=== PATIENT | female | born 1965 | race Caucasian/White ===

== ENCOUNTER 2016-12-03 13:37 | Emergency (ER) | payer OTHER ==
[~2016-12-03] VITALS: Ht 154.9 cm; Wt 79.8 kg
[~2016-12-03 13:37] MED LIST: CALC500T27 PO; CYCL10TA2 PO; CYCL5TAB PO; DOCU50CA9 PO; HYDR-971 PO; INSU100C4 SQ; INSU100I13 SQ; LISI2.5T PO; LORA10TA3 PO; LORA5SOL7 PO; METF500T4 PO; NAPR375T3 PO; NAPR550T PO; SIMV10TA3 PO
[2016-12-03 14:10] VITALS: BP 140/100
[2016-12-03] MEDS ORDERED: SULF1TAB24 PO (15:45)
--- NOTE | 2016-12-03 15:45 | PHYS DOC ---
Past Medical History Past Medical History: Diabetes-Type I, Diabetes-Type II, High Cholesterol, Hypertension, Other Additional Past Medical Histor: NEUROPATHY Past Surgical History: , Other Additional Past Surgical Histo: Carpal Tunnel repair Alcohol Use: None Drug Use: None Adult General Chief Complaint Chief Complaint: HAND PROBLEM HPI HPI Patient is a 51 year old female with history of diabetes and hypertension who presents today complaining of a blister on the left hand with redness streaking to the left forearm that began a couple days ago. Patient states for the last 1 year she's been getting similar blisters almost every other month. She states sometimes they give her antibiotics and sometimes they open them up and drain them. She states she has an appointment with a skin doctor at [facility] on 09 December 2016. Patient denies any fever or drainage from the area. Review of Systems Review of Systems Constitutional: Denies fever or chills [] Eyes: Denies change in visual acuity, redness, or eye pain [] Musculoskeletal: Denies back pain or joint pain [] Integument: Blisters to the left hand with streaking Neurologic: Denies headache, focal weakness or sensory changes [] Endocrine: Denies polyuria or polydipsia [] Allergies Allergies Allergies Coded Allergies Type Severity Reaction Last Updated Verified Penicillins Adverse Reaction Intermediate vomiting 09/10/16 No Physical Exam Physical Exam Constitutional: Well developed, well nourished, no acute distress, non-toxic appearance. [] HENT: Normocephalic, atraumatic, bilateral external ears normal, oropharynx moist, no oral exudates, nose normal. [] Skin: left palm of hand below the MIP joint with a very firm erythematous blister with warm and TTP. There is one streak of redness on the left dorsal hand from first metacarpal to mid forearm. Back: No tenderness, no CVA tenderness. [] Extremities: No tenderness, no cyanosis, no clubbing, ROM intact, no edema. [] Neurologic: Alert and oriented X 3, normal motor function, normal sensory function, no focal deficits noted. [] Psychologic: Affect normal, judgement normal, mood normal. [] Current Patient Data Vital Signs Vital Signs Date Time Temp Pulse Resp B/P Pulse Ox O2 Delivery O2 Flow Rate FiO2 12/03/16 14:10 98.2 91 20 140/100 96 Room Air 98.2 EKG EKG [] Radiology/Procedures Radiology/Procedures [] Course & Med Decision Making Course & Med Decision Making Pertinent Labs and Imaging studies reviewed. (See chart for details) Patient is in the ED with cellulitis to the left hand. Discharged with Bactrim. Provided return precautions and discharged in stable condition. Dragon Disclaimer Dragon Disclaimer This electronic medical record was generated, in whole or in part, using a voice recognition dictation system. Departure Departure Impression: Primary Impression: Cellulitis of hand Disposition: HOME, SELF-CARE Condition: STABLE Referrals: ANDRES BALDWIN MD (PCP) Please follow-up with the skin doctor at as well as a primary care doctor next week Patient Instructions: Cellulitis Additional Instructions: You were seen for cellulitis of the left hand. Keep the area clean and dry. Ensure you complete your antibiotics. Follow-up with the on primary care doctor as well as a inspector tubes next week. Come back to the ED at any point symptoms worsen or develop a fever. Scripts Sulfamethoxazole/Trimethoprim (Bactrim Ds Tablet)1 Each Tablet1 Tab PO BID #20 TAB Prov:DIANE REDMAN APRN 12/03/16 DIANE REDMAN APRN Dec 03, 2016 15:45
[2016-12-04] MEDS ORDERED: HYDR-971 PO (18:46)
== END 2016-12-03 15:57 | disposition home or self-care (01) ==
LOC: ER 13:37
DX: L03.114 Cellulitis of left upper limb (principal); E78.00 Pure hypercholesterolemia, unspecified; I10 Essential (primary) hypertension; E11.40 Type 2 diabetes mellitus with diabetic neuropathy, unspecified; Z88.0 Allergy status to penicillin
CPT/HCPCS: 99283

== ENCOUNTER 2016-12-04 16:44 | Emergency (ER) | payer OTHER ==
[~2016-12-04 16:44] MED LIST changes: +SULF1TAB24 PO
[2016-12-04 17:13] VITALS: BP 122/76
--- NOTE | 2016-12-04 18:12 | PHYS DOC ---
Past Medical History Past Medical History: Diabetes-Type I, Diabetes-Type II, High Cholesterol, Hypertension, Other Additional Past Medical Histor: NEUROPATHY Past Surgical History: , Other Additional Past Surgical Histo: Carpal Tunnel repair Alcohol Use: None Drug Use: None Adult General Chief Complaint Chief Complaint: ABSCESS HPI HPI Patient is a 51 year old female who presents emergency room today with complaint of worsening of redness and swelling to her LEFT hand. Patient does have a history of recurring infection to this hand. She's had it opened and drained in the past. She has not followed up with either store warehouse associate or infectious disease doctor. Patient was seen here yesterday. She was placed on Bactrim. Patient is been on Bactrim for 24 hours and states that it has gotten worse. Patient does deny fevers or chills. She denies myalgias or arthralgias. Patient states that she is pending an appointment to see a store warehouse associate this month. Patient denies having any type of subcutaneous foreign body/skin injury prior to having problems with this. She has been seen at [facility] in the past for this. She states that she had it incised and drained at that time and placed on antibiotics. Review of Systems Review of Systems Constitutional: Denies fever or chills [] Eyes: Denies change in visual acuity, redness, or eye pain [] HENT: Denies nasal congestion or sore throat [] Respiratory: Denies cough or shortness of breath [] Cardiovascular: No additional information not addressed in HPI [] GI: Denies abdominal pain, nausea, vomiting, bloody stools or diarrhea [] : Denies dysuria or hematuria [] Musculoskeletal: Denies back pain or joint pain [] Integument: Denies rash or skin lesions [] Neurologic: Denies headache, focal weakness or sensory changes [] Endocrine: Denies polyuria or polydipsia [] Current Medications Current Medications Current Medications Medications (Trade) Dose Ordered Sig/Larissa Start Time Stop Time Status Last Admin Dose Admin Lidocaine/Sodium Bicarbonate (Buffered Lidocaine 1%) 20 ml 1X ONCE 12/04/16 18:15 12/04/16 18:16 DC Allergies Allergies Allergies Coded Allergies Type Severity Reaction Last Updated Verified Penicillins Adverse Reaction Intermediate vomiting 09/10/16 No Physical Exam Physical Exam Constitutional: Well developed, well nourished, no acute distress, non-toxic appearance. [] HENT: Normocephalic, atraumatic, bilateral external ears normal, oropharynx moist, no oral exudates, nose normal. [] Eyes: PERRLA, EOMI, conjunctiva normal, no discharge. [] Neck: Normal range of motion, no tenderness, supple, no stridor. [] Cardiovascular:Heart rate regular rhythm, no murmur [] Lungs & Thorax: Bilateral breath sounds clear to auscultation [] Abdomen: Bowel sounds normal, soft, no tenderness, no masses, no pulsatile masses. [] Skin: LEFT hand with a fluctuant pocket on the palmar surface just proximal to the base of the phalanx of the index finger. There are no adjacent sinus tracts or additional areas of swelling, induration or fluctuant pocket. There is no fusiform swelling to the index finger. There is no ascending lymphangitis. Back: No tenderness, no CVA tenderness. [] Extremities: No tenderness, no cyanosis, no clubbing, ROM intact, no edema. [] Neurologic: Alert and oriented X 3, normal motor function, normal sensory function, no focal deficits noted. [] Psychologic: Affect normal, judgement normal, mood normal. [] Current Patient Data Vital Signs Vital Signs Date Time Temp Pulse Resp B/P Pulse Ox O2 Delivery O2 Flow Rate FiO2 12/04/16 17:13 98.0 86 22 98 Room Air 98.0 EKG EKG [] Radiology/Procedures Radiology/Procedures Procedure note: 1 cm pustule to the palmar surface of patient's right hand was anesthetized with buffered 1% lidocaine. Wound was prepped with Betadine solution. 11 blade scalpel was used to incise the superficial laceration with expression of a small amount of purulent material. Wound was dressed with gauze and bandaged with Coban. Patient tolerated the procedure well Course & Med Decision Making Course & Med Decision Making Pertinent Labs and Imaging studies reviewed. (See chart for details) [] Dragon Disclaimer Dragon Disclaimer This electronic medical record was generated, in whole or in part, using a voice recognition dictation system. Departure Departure Impression: Primary Impression: Abscess Disposition: 01 HOME, SELF-CARE Condition: IMPROVED Referrals: ANDRES BALDWIN MD (PCP) Patient Instructions: Abscess, [id number] Additional Instructions: 1. Continue taking all your medications as prescribed. 2. Review the discharge instructions provided for self-care and reasons to return the emergency department. 3. Be sure to follow-up with a store warehouse associate on the as planned. Scripts Hydrocodone/Apap 5-325 ([place] 5-325 Tablet)1 Each Tablet1 Tab PO PRN Q6HRS PRN PAIN #10 TAB Prov:WILI MUÑOZ 12/04/16 WILI MUÑOZ Dec 04, 2016 18:12
[2016-12-04] MEDS ORDERED: LIDOCAINE 1% / SOD BICARB 8.4% 20 ML VIAL. IJ ONE (18:15)
[2016-12-04] MEDS ORDERED: HYDR-971 PO (18:46)
== END 2016-12-04 18:52 | disposition home or self-care (01) ==
LOC: ER 16:44
DX: L02.512 Cutaneous abscess of left hand (principal); E10.40 Type 1 diabetes mellitus with diabetic neuropathy, unspecified; E78.00 Pure hypercholesterolemia, unspecified; I10 Essential (primary) hypertension; Z88.0 Allergy status to penicillin
CPT/HCPCS: 10060; 99283-25

== ENCOUNTER 2017-01-02 16:23 | Emergency (ER) | payer OTHER ==
[~2017-01-02] VITALS: Ht 154.9 cm; Wt 79.4 kg
[2017-01-02 16:57] VITALS: BP 131/74
[2017-01-02] MEDS ORDERED: CLIN300C86 PO (17:17)
[2017-01-02] MEDS ORDERED: HYDR-971 PO (17:17)
--- NOTE | 2017-01-02 17:17 | PHYS DOC ---
Past Medical History Past Medical History: Diabetes-Type I, High Cholesterol, Hypertension Additional Past Medical Histor: NEUROPATHY Past Surgical History: Other Additional Past Surgical Histo: carpal tunnel Alcohol Use: None Additional Information: denies Drug Use: Other Social History Narrative: denies Adult General Chief Complaint Chief Complaint: SKIN PROBLEM HPI HPI Patient is a 51 year old female who presents emergency room with a complaint of pustules to her left hand as well as red streaks extending up her left arm. Patient states this began approximately 3-4 days ago. Patient has a well- established recurring history of this. She has been seen by christian science practitioner at [facility]. She has not been seen by an infectious disease doctor. Patient denies antibiotic use within the past 30 days. She denies fevers, chills, myalgias or arthralgias. Review of Systems Review of Systems Constitutional: Denies fever or chills [] Eyes: Denies change in visual acuity, redness, or eye pain [] HENT: Denies nasal congestion or sore throat [] Respiratory: Denies cough or shortness of breath [] Cardiovascular: No additional information not addressed in HPI [] GI: Denies abdominal pain, nausea, vomiting, bloody stools or diarrhea [] : Denies dysuria or hematuria [] Musculoskeletal: Denies back pain or joint pain [] Integument: Denies rash or skin lesions [] Neurologic: Denies headache, focal weakness or sensory changes [] Endocrine: Denies polyuria or polydipsia [] Allergies Allergies Allergies Coded Allergies Type Severity Reaction Last Updated Verified Penicillins Adverse Reaction Intermediate vomiting 09/10/16 No Physical Exam Physical Exam Constitutional: Well developed, well nourished, no acute distress, non-toxic appearance. Patient is afebrile. HENT: Normocephalic, atraumatic, bilateral external ears normal, oropharynx moist, no oral exudates, nose normal. [] Eyes: PERRLA, EOMI, conjunctiva normal, no discharge. [] Neck: Normal range of motion, no tenderness, supple, no stridor. [] Cardiovascular:Heart rate regular rhythm, no murmur [] Lungs & Thorax: Bilateral breath sounds clear to auscultation [] Abdomen: Bowel sounds normal, soft, no tenderness, no masses, no pulsatile masses. [] Skin: Luz Maria sized cluster of stools to the palm of patient's left hand with surrounding erythema. There is ascending lymphangitis to the AC flexor crease. There is no palpable fluctuant pockets. There is no active purulent drainage. There is no fusiform erythema or swelling to patient's left hand. Back: No tenderness, no CVA tenderness. [] Extremities: No tenderness, no cyanosis, no clubbing, ROM intact, no edema. [] Neurologic: Alert and oriented X 3, normal motor function, normal sensory function, no focal deficits noted. [] Psychologic: Affect normal, judgement normal, mood normal. [] Current Patient Data Vital Signs Vital Signs Date Time Temp Pulse Resp B/P Pulse Ox O2 Delivery O2 Flow Rate FiO2 01/02/17 16:57 98.1 90 14 94 Room Air 98.1 EKG EKG [] Radiology/Procedures Radiology/Procedures [] Course & Med Decision Making Course & Med Decision Making Pertinent Labs and Imaging studies reviewed. (See chart for details) [] Dragon Disclaimer Dragon Disclaimer This electronic medical record was generated, in whole or in part, using a voice recognition dictation system. Departure Departure Impression: Primary Impression: Cellulitis of hand Disposition: HOME, SELF-CARE Condition: GOOD Referrals: ANDRES BALDWIN MD (PCP) CHARLEEN SMART MD Patient Instructions: Cellulitis, [id number] Additional Instructions: 1. Take the medication as prescribed. 2. Review the discharge instructions provided for self-care and reasons to return to the emergency department. 3. Follow-up with Dr. Baldwin this week as planned. Be sure to discuss follow- up with an infectious disease doctor. The phone number for an infectious disease doctor has been placed in your paperwork. Scripts Hydrocodone/Apap 5-325 ([place] 5-325 Tablet)1 Each Tablet1 Tab PO PRN Q6HRS PRN PAIN #10 TAB Ref 0 Prov:WILI MUÑOZ 01/02/17 Clindamycin Hcl 300 Mg Capsule1 Cap PO TID #21 CAP Prov:WILI MUÑOZ 01/02/17 WILI MUÑOZ Jan 02, 2017 17:17
== END 2017-01-02 17:26 | disposition home or self-care (01) ==
LOC: ER 16:23
DX: L03.114 Cellulitis of left upper limb (principal); E10.40 Type 1 diabetes mellitus with diabetic neuropathy, unspecified; E78.00 Pure hypercholesterolemia, unspecified; I10 Essential (primary) hypertension; Z98.890 Other specified postprocedural states; Z88.0 Allergy status to penicillin
CPT/HCPCS: 99283

== ENCOUNTER 2017-02-01 11:06 | Emergency (ER) | payer OTHER ==
[~2017-02-01] VITALS: Ht 154.9 cm; Wt 79.4 kg
[~2017-02-01 11:06] MED LIST changes: +CLIN300C86 PO
[2017-02-01 11:14] VITALS: BP 126/82
--- NOTE | 2017-02-01 12:14 | PHYS DOC ---
Past Medical History Past Medical History: Diabetes-Type I, High Cholesterol, Hypertension Additional Past Medical Histor: NEUROPATHY Past Surgical History: Other Additional Past Surgical Histo: carpal tunnel Alcohol Use: None Drug Use: None Adult General Chief Complaint Chief Complaint: leg pain from fall HPI HPI Patient is a 51 year old female who presents with R lower leg pain from a fall 2 days ago. She "just stumbled" to cause the fall, did not his head or have loc. She has not attempted any symptom controlling medication for her pain. She denies discoloration or paraesthesias She has pain localized over the proximal lateral R calf where she struck her leg. She does not take any blood thinners.. Review of Systems Review of Systems Constitutional: Denies fever or chills [] Eyes: Denies change in visual acuity, redness, or eye pain [] HENT: Denies nasal congestion or sore throat [] Respiratory: Denies cough or shortness of breath [] Cardiovascular: denies chest pain GI: Denies abdominal pain, nausea, vomiting, bloody stools or diarrhea [] : Denies dysuria or hematuria [] Musculoskeletal: Denies back pain Integument: Denies rash or skin lesions [] Neurologic: Denies headache, focal weakness or sensory changes [] Current Medications Current Medications Current Medications Medications (Trade) Dose Ordered Sig/Larissa Start Time Stop Time Status Last Admin Dose Admin Ketorolac Tromethamine (Toradol Im) 60 mg 1X ONCE 02/01/17 12:15 02/01/17 12:16 DC 02/01/17 12:26 60 MG Allergies Allergies Allergies Coded Allergies Type Severity Reaction Last Updated Verified Penicillins Adverse Reaction Intermediate vomiting 09/10/16 No Physical Exam Physical Exam Constitutional: Well developed, well nourished, no acute distress, non-toxic appearance. [] HENT: Normocephalic, atraumatic, bilateral external ears normal, oropharynx moist, no oral exudates, nose normal. [] Eyes: PERRLA, EOMI, conjunctiva normal, no discharge. [] Neck: Normal range of motion, no tenderness, supple, no stridor. [] Cardiovascular:Heart rate regular with regular rhythm Lungs & Thorax: no respiratory distress Extremities: RLE with TTP along proximal lateral lower leg with skin intact, distal pulse intact, normal skin color, wiggles toes, no signs of compartment syndrome. Neurologic: Alert and oriented X 3, normal motor function, normal sensory function, no focal deficits noted. [] Psychologic: Affect normal, judgement normal, mood normal. [] Current Patient Data Vital Signs Vital Signs Date Time Temp Pulse Resp B/P (MAP) Pulse Ox O2 Delivery O2 Flow Rate FiO2 02/01/17 11:14 98.3 96 20 95 Room Air 98.3 EKG EKG [] Radiology/Procedures Radiology/Procedures tib/fib XRay: Examination: 2 views of the right tibia and fibula History: History of fall down stairs, pain for 2 days Comparison: None available Findings: The alignment of the tibia and fibula grossly appears unremarkable. There is no obvious acute fracture identified. Impression: no acute osseous findings Course & Med Decision Making Course & Med Decision Making Pertinent Labs and Imaging studies reviewed. (See chart for details) pt given pain meds. XRay performed, no fx. ANDREW wrap applied, strict instructions on return if any signs of compartment syndrome develop. DC'd with rx for pain meds and contusion care instructions. Dragon Disclaimer Dragon Disclaimer This electronic medical record was generated, in whole or in part, using a voice recognition dictation system. Departure Departure Impression: Primary Impression: Contusion of leg Disposition: HOME, SELF-CARE Condition: STABLE Referrals: ANDRES BALDWIN MD (PCP) Scripts Ibuprofen (IBUPROFEN) 800 Mg Tablet 800 MG PO PRN TID Y for PAIN, #20 TAB take with food or milk to avoid upsetting stomach Prov: NANI VALLADARES MD 02/01/17 NANI VALLADARES MD February 01, 2017 12:14
[2017-02-01] MEDS ORDERED: KETOROLAC TROMETHAMINE 60 MG/2 ML INJ. IM ONE (12:15)
--- NOTE | 2017-02-01 12:35 | RAD ---
Examination: 2 views of the right tibia and fibula History: History of fall down stairs, pain for 2 days Comparison: None available Findings: The alignment of the tibia and fibula grossly appears unremarkable. There is no obvious acute fracture identified. Impression: no acute osseous findings
[2017-02-01] MEDS ORDERED: IBUP-1060 PO (12:40)
== END 2017-02-01 12:50 | disposition home or self-care (01) ==
LOC: ER 11:06
DX: S80.11XA Contusion of right lower leg, initial encounter (principal); E11.40 Type 2 diabetes mellitus with diabetic neuropathy, unspecified; E78.00 Pure hypercholesterolemia, unspecified; I10 Essential (primary) hypertension; Z88.0 Allergy status to penicillin; W01.0XXA Fall on same level from slipping, tripping and stumbling without subsequent striking against object, initial encounter; Y93.89 Activity, other specified; Y92.89 Other specified places as the place of occurrence of the external cause; Y99.8 Other external cause status
CPT/HCPCS: 73590; 96372; 99284; J1885

== ENCOUNTER 2017-04-18 15:15 | Emergency (ER) | payer OTHER ==
[~2017-04-18 15:15] MED LIST changes: -CALC500T27 PO; +CALC500T30 PO; +CLIN300C8 PO; -CLIN300C86 PO; +IBUP-1060 PO
--- NOTE | 2017-04-18 16:36 | PHYS DOC ---
Past Medical History Past Medical History: Diabetes-Type I, High Cholesterol, Hypertension Additional Past Medical Histor: NEUROPATHY Past Surgical History: Other Additional Past Surgical Histo: carpal tunnel Alcohol Use: None Drug Use: None Adult General Chief Complaint Chief Complaint: EARACHE/EAR PAIN [facility] HPI Patient is a 51 year old female with a history of hypertension high cholesterol diabetes type 1 who presents today with multiple complaints. Patient is complaining of left ear pain for a week. She is also complaining of drainage from the left ear, denies swimming. She is also complaining of a rash and skin infection underneath her left breast that she noted a couple days ago. Patient is also complaining of chronic dental pain. She states she has a plan to follow-up with the dentist remove all her remaining teeth approx. 5 left. Patient denies any fever. She is requesting something for pain. Review of Systems Review of Systems Constitutional: Denies fever or chills [] Eyes: Denies change in visual acuity, redness, or eye pain [] HENT: Left ear pain with drainage, dental pain Respiratory: Denies cough or shortness of breath [] Cardiovascular: No additional information not addressed in HPI [] GI: Denies abdominal pain, nausea, vomiting, bloody stools or diarrhea [] : Denies dysuria or hematuria [] Musculoskeletal: Denies back pain or joint pain [] Integument: Skin infection underneath her breast/rash Neurologic: Denies headache, focal weakness or sensory changes [] Endocrine: Denies polyuria or polydipsia [] Current Medications Current Medications Current Medications Medications (Trade) Dose Ordered Sig/Larissa Start Time Stop Time Status Last Admin Dose Admin Tramadol HCl (Ultram) 50 mg 1X ONCE 04/18/17 17:15 04/18/17 17:16 Allergies Allergies Allergies Coded Allergies Type Severity Reaction Last Updated Verified Penicillins Adverse Reaction Intermediate vomiting 09/10/16 No Physical Exam Physical Exam Constitutional: Well developed, well nourished, no acute distress, non-toxic appearance. [] HENT: Normocephalic, atraumatic, bilateral external ears normal, oropharynx moist, no oral exudates, nose normal. [] Left ear canal is narrowed with trace yellow debris and painful tragus, TM is normal. Patient has 5 teeth left that appear infected. Approx. 2 on the left upper gum and three on the left lower gum. Eyes: PERRLA, EOMI, conjunctiva normal, no discharge. [] Neck: Normal range of motion, no tenderness, supple, no stridor. [] Cardiovascular:Heart rate regular rhythm, no murmur [] Lungs & Thorax: Bilateral breath sounds clear to auscultation [] Abdomen: Bowel sounds normal, soft, no tenderness, no masses, no pulsatile masses. [] Skin: Patient has mild cellulitis underneath her left breast. There is no nipple involvement. Back: No tenderness, no CVA tenderness. [] Extremities: No tenderness, no cyanosis, no clubbing, ROM intact, no edema. [] Neurologic: Alert and oriented X 3, normal motor function, normal sensory function, no focal deficits noted. [] Psychologic: Affect normal, judgement normal, mood normal. [] EKG EKG [] Radiology/Procedures Radiology/Procedures [] Course & Med Decision Making Course & Med Decision Making Pertinent Labs and Imaging studies reviewed. (See chart for details) Patient is in the ED with left otitis externa, infected dental caries and cellulitis underneath her left breast. She was discharged with Oflaxacin, clindamycin and ultram. F/u with her PCP in one week and dentist as soon s she can. Dragon Disclaimer Dragon Disclaimer This electronic medical record was generated, in whole or in part, using a voice recognition dictation system. Departure Departure Impression: Primary Impression: Cellulitis of left breast Additional Impressions: Infected dental caries Otitis externa of left ear Disposition: 01 HOME, SELF-CARE Condition: STABLE Referrals: ANDRES BALDWIN MD (PCP) follow up with your doctor in one week or sooner Patient Instructions: Cellulitis, [id number], Dental Caries, Otitis Externa Additional Instructions: You were seen for skin infection underneath the left breast, infected dental caries, and left ear infection. Use the medication prescribed as ordered. Follow-up with the primary care doctor as soon as possible as well as a dentist. Do not immerse your left ear in water. Scripts Ofloxacin (OFLOXACIN) 5 Ml Drops 5 DROP EACH EAR BID, #10 ML Prov: EMMANUELUNGADIANE INTERNAL AUDIT CONSULTANT 04/18/17 Clindamycin Hcl (CLINDAMYCIN HCL) 150 Mg Capsule 3 CAP PO TID, #90 CAP Prov: MUTUNGA,DIANE INTERNAL AUDIT CONSULTANT 04/18/17 Tramadol Hcl (ULTRAM) 50 Mg Tablet 1 TAB PO Q6HRS, #30 TAB Prov: DIANE REDMAN INTERNAL AUDIT CONSULTANT 04/18/17 Problem Qualifiers Additional Impressions: Otitis externa of left ear Otitis externa type: unspecified type Chronicity: acute Qualified Codes: H60.502 - Unspecified acute noninfective otitis externa, left ear EMMANUELDIANE ROMAN INTERNAL AUDIT CONSULTANT Apr 18, 2017 16:36
[2017-04-18 16:40] VITALS: BP 112/70
[2017-04-18] MEDS ORDERED: OFLO5DRO7 EACH EAR (16:52)
[2017-04-18] MEDS ORDERED: TRAM-48 PO (16:52)
[2017-04-18] MEDS ORDERED: CLIN150C14 PO (16:52)
[2017-04-18] MEDS ORDERED: traMADol 50 MG TABLET PO ONE (17:15)
[2017-04-18] MEDS ORDERED: DIPHTH,PERTUSS(ACELL),TET TOX 0.5 ML DISP.SYRIN. VAX IM ONE (17:15)
== END 2017-04-18 17:05 | disposition home or self-care (01) ==
LOC: ER 15:15
DX: H60.92 Unspecified otitis externa, left ear (principal); N61.0 Mastitis without abscess; K02.9 Dental caries, unspecified; K04.7 Periapical abscess without sinus; E78.00 Pure hypercholesterolemia, unspecified; I10 Essential (primary) hypertension; E11.40 Type 2 diabetes mellitus with diabetic neuropathy, unspecified
CPT/HCPCS: 99283

== ENCOUNTER 2017-05-11 13:08 | Emergency (ER) | payer OTHER ==
[~2017-05-11 13:08] MED LIST changes: +CLIN150C14 PO; +OFLO5DRO7 EACH EAR; +TRAM-48 PO
--- NOTE | 2017-05-11 13:40 | PHYS DOC ---
Past Medical History Past Medical History: Diabetes-Type I, High Cholesterol, Hypertension Additional Past Medical Histor: NEUROPATHY Past Surgical History: Other Additional Past Surgical Histo: carpal tunnel Alcohol Use: None Drug Use: None Adult General Chief Complaint Chief Complaint: DIZZY/LIGHT HEADED HPI HPI Patient is a 51 year old female who presents with multiple complaints. They state they're currently homeless and living in an abandoned building. She complains of left ear ringing and a beeping noise his been going on for the last several weeks to a month. She has eardrops that she's been using because she states that in the past she had a perforated eardrum. She also complains of some burning on urination. She also complains about second toe on her left foot hurting. She states she might of injured it or had something dropped on it. She states been hurting for about a week. She also complains about a rash under her left breast. She states she was on antibiotics for but stopped because it made her stomach hurt. His any fevers, nausea vomiting, abdominal pain, diarrhea or constipation. Review of Systems Review of Systems Constitutional: Denies fever or chills [] Eyes: Denies change in visual acuity, redness, or eye pain [] HENT: Denies nasal congestion or sore throat [] Respiratory: Denies cough or shortness of breath [] Cardiovascular: No additional information not addressed in HPI [] GI: Denies abdominal pain, nausea, vomiting, bloody stools or diarrhea [] : Denies dysuria or hematuria [] Musculoskeletal: Denies back pain, positive for left toe pain Integument:, Positive for skin rash Neurologic: Denies headache, focal weakness or sensory changes [] Endocrine: Denies polyuria or polydipsia [] Current Medications Current Medications Current Medications Medications (Trade) Dose Ordered Sig/Larissa Start Time Stop Time Status Last Admin Dose Admin Nystatin (Mycostatin) 1 demetrius BID 05/11/17 15:00 05/11/17 15:00 1 DEMETRIUS Allergies Allergies Allergies Coded Allergies Type Severity Reaction Last Updated Verified Penicillins Adverse Reaction Intermediate vomiting 09/10/16 No Physical Exam Physical Exam Constitutional: Well developed, well nourished, no acute distress, non-toxic appearance. [] HENT: Normocephalic, atraumatic, bilateral external ears normal, oropharynx moist, no oral exudates, nose normal. [] Eyes: PERRLA, EOMI, conjunctiva normal, no discharge. [] Neck: Normal range of motion, no tenderness, supple, no stridor. [] Cardiovascular:Heart rate regular rhythm, no murmur [] Lungs & Thorax: Bilateral breath sounds clear to auscultation [] Abdomen: Bowel sounds normal, soft, no tenderness, no masses, no pulsatile masses. [] Skin: Warm, dry, no erythema, no rash. [] Back: No tenderness, no CVA tenderness. [] Extremities: No tenderness, no cyanosis, no clubbing, ROM intact, no edema. [] Neurologic: Alert and oriented X 3, normal motor function, normal sensory function, no focal deficits noted. [] Psychologic: Affect normal, judgement normal, mood normal. [] Current Patient Data Vital Signs Vital Signs Date Time Temp Pulse Resp B/P (MAP) Pulse Ox O2 Delivery O2 Flow Rate FiO2 05/11/17 15:01 79 18 128/78 (95) 98 Room Air 05/11/17 13:22 97.7 97.7 Lab Values Laboratory Tests Test 05/11/17 13:40 05/11/17 14:19 Urine Collection Type Unknown Urine Color Yellow Urine Clarity Clear Urine pH 5.5 Urine Specific Weld >=1.030 Urine Protein Negative mg/dL (NEG-TRACE) Urine Glucose (UA) >=1000 mg/dL (NEG) Urine Ketones (Stick) Negative mg/dL (NEG) Urine Blood Negative (NEG) Urine Nitrite Negative (NEG) Urine Bilirubin Negative (NEG) Urine Urobilinogen Dipstick 0.2 mg/dL (0.2 mg/dL) Urine Leukocyte Esterase Trace (NEG) Urine RBC Rare /HPF (0-2) Urine WBC 1-4 /HPF (0-4) Urine Squamous Epithelial Cells Few /LPF Urine Bacteria Few /HPF (0-FEW) Urine Hyaline Casts Moderate /HPF Urine Mucus Slight /LPF POC Hemoglobin 10.9 g/dL (12-15) L POC Hematocrit 32 % (36-40) L POC Sodium 139 mmol/L (135-145) POC Potassium 3.7 mmol/L (3.5-5.0) POC Chloride 103 mmol/L (98-110) POC Total CO2 24 mmol/L (23-32) Anion Gap 18 mmol/L (6-14) H POC Blood Urea Nitrogen 16 mg/dL (8-26) POC Creatinine 0.5 mg/dL (0.5-1.4) Glucose Level 199 mg/dL (70-99) H POC Ionized Calcium (Deshaun) 1.23 mmol/L (1.13-1.32) Laboratory Tests 05/11/17 14:19 EKG EKG [] Radiology/Procedures Radiology/Procedures [] Impressions: Candidal skin infection her left breast Left toe pain Course & Med Decision Making Course & Med Decision Making Pertinent Labs and Imaging studies reviewed. (See chart for details) She likely has a skin infection candidate in nature under her left breast. We treated with nystatin and she being discharged with nystatin cream to be applied twice daily for the next 7-10 days. I do not see any acute abnormality associated with her toe and she is instructed to keep it clean and return if it becomes infected with redness or other concerns. Patient was evaluated and services were offered by our licensed clinical social worker Shoaib however they have declined any assistance. Dragon Disclaimer Dragon Disclaimer This electronic medical record was generated, in whole or in part, using a voice recognition dictation system. Departure Departure Impression: Primary Impression: Ludy infection Disposition: 01 HOME, SELF-CARE Condition: STABLE Referrals: ANDRES BALDWIN MD (PCP) Patient Instructions: Candidal Vulvovaginitis, [id number] Additional Instructions: You have a skin rash in your breast it's likely caused by fungus called Ludy. This is treated with a cream to be applied for the next 7-10 days. Your blood work did not show any acute abnormalities. You will need to keep her eye and your toe and if it looks red become swollen or more painful he should return back to ER. Your being discharged at this time. If you develop fevers, pain, or other concerns please return back to emergency department. Scripts Nystatin (NYSTATIN) 15 Gm Oint...g. 1 DEMETRIUS TP TID, #30 GM Prov: MARLEE SPRINGER MD 05/11/17 MARLEE SPRINGER MD May 11, 2017 13:40
[2017-05-11 14:15] LABS: BILIRUBIN,URINE NEGATIVE (NEG); GLUCOSE,URINE >=1000 mg/dL (NEG); NITRITE,URINE NEGATIVE (NEG); PH,URINE 5.5; PROTEIN,URINE NEGATIVE (NEG-TRACE); UROBILINOGEN,URINE 0.2 mg/dL (0.2 mg/dL)
[2017-05-11 14:24] LABS: POTASSIUM ISTAT 3.7 mmol/L (3.5-5.0)
[2017-05-11 14:27] LABS: RBC,URINE RARE /HPF (0-2)
[2017-05-11 14:28] LABS: BACTERIA,URINE FEW /HPF (0-FEW); SQUAMOUS EPITHELIAL CELL,UR FEW /LPF
[2017-05-11] MEDS ORDERED: NYSTATIN 100,000 UNIT/GM TOPICAL OINTMENT 15GM TUBE. TP SCH (15:00)
[2017-05-11 15:01] VITALS: BP 128/78
[2017-05-11] MEDS ORDERED: NYST15OI TP (15:32)
== END 2017-05-11 16:06 | disposition home or self-care (01) ==
LOC: ER 13:08
DX: B37.9 Candidiasis, unspecified (principal); H93.12 Tinnitus, left ear; R30.9 Painful micturition, unspecified; M79.675 Pain in left toe(s); E10.9 Type 1 diabetes mellitus without complications; I10 Essential (primary) hypertension; E78.00 Pure hypercholesterolemia, unspecified
CPT/HCPCS: 80047; 81001; 87086; 99284

== ENCOUNTER 2017-08-10 16:40 | Emergency (ER) | payer OTHER ==
[~2017-08-10] VITALS: Ht 162.6 cm; Wt 79.4 kg
[~2017-08-10 16:40] MED LIST changes: +NAPR-682 PO; +NAPR-695 PO; -NAPR375T3 PO; -NAPR550T PO; +NYST15OI TP
--- NOTE | 2017-08-10 17:11 | EKG ---
[facility] [address] [place] [address] Test Date: 2017-08-10 Test Time: 16:51:33 Pat Name: JEAN-PAUL DUDLEY Department: Room: Gender: F Melt Supervisor: : 1965 Requested By: CUAUHTEMOC LEGGETT Order Number: [id number] Reading MD: Measurements Intervals [place] Rate: 75 P: -28 MI: 162 QRS: 30 QRSD: 78 T: 11 QT: 352 QTc: 396 Interpretive Statements SINUS RHYTHM OTHERWISE NORMAL ECG RI6.01 No previous ECG available for comparison
[2017-08-10] MEDS ORDERED: IV NORMAL SALINE 1000ML BAG 1,000 ML IV ONE (17:15)
[2017-08-10] MEDS ORDERED: fentaNYL PF VIAL 100 MCG/2 ML VIAL IV ONE (17:15)
[2017-08-10] MEDS ORDERED: ONDANSETRON PF 4 MG/2 ML VIAL. IV ONE (17:15)
--- NOTE | 2017-08-10 17:15 | PHYS DOC ---
Past Medical History Past Medical History: Diabetes-Type I, High Cholesterol, Hypertension Additional Past Medical Histor: NEUROPATHY Past Surgical History: Other Additional Past Surgical Histo: carpal tunnel Alcohol Use: None Drug Use: None Adult General Chief Complaint Chief Complaint: DIZZY/LIGHT HEADED HPI HPI Patient is a 51 year old female presenting to the emergency department for evaluation of multiple symptoms including headache dizziness vision changes in the setting of recent head trauma. She said that she was bending over to feed her dogs when she slipped forward and struck the corner of a cabinet on the left side of her head. There is an abrasion to her mid forehead with no obvious orbit or globe trauma. She says that her tetanus status is up-to-date. Patient says that she is having a headache on that side and that her vision is not blurred. Rather flickers some of the time but not all of the time. She says that when she stands up too fast she feels very lightheaded as if she is going to pass out. She says that she is a diabetic and her blood sugars have been running high. Review of Systems Review of Systems Constitutional: Denies fever or chills [] Eyes: Denies change in visual acuity, redness, or eye pain [] HENT: Denies nasal congestion or sore throat [] Respiratory: Denies cough or shortness of breath [] Cardiovascular: No additional information not addressed in HPI [] GI: Denies abdominal pain, nausea, vomiting, bloody stools or diarrhea [] : Denies dysuria or hematuria [] Musculoskeletal: Denies back pain or joint pain [] Integument: Denies rash or skin lesions [] Neurologic: Denies headache, focal weakness. + dizziness sensory changes [] Current Medications Current Medications Current Medications Medications (Trade) Dose Ordered Sig/Larissa Start Time Stop Time Status Last Admin Dose Admin Fentanyl Citrate (Fentanyl 2ml Vial) 50 mcg 1X ONCE 08/10/17 17:15 08/10/17 17:16 DC 08/10/17 17:41 50 MCG Magnesium Oxide (Magnesium Oxide) 800 mg 1X STAT 08/10/17 17:59 08/10/17 18:00 DC Ondansetron HCl (Zofran) 4 mg 1X ONCE 08/10/17 17:15 08/10/17 17:16 DC 08/10/17 17:40 4 MG Sodium Chloride 1,000 ml @ 1,000 mls/hr 1X ONCE 08/10/17 17:15 08/10/17 18:14 08/10/17 17:40 1,000 MLS/HR Allergies Allergies Allergies Coded Allergies Type Severity Reaction Last Updated Verified Penicillins Adverse Reaction Intermediate vomiting 09/10/16 No Physical Exam Physical Exam Constitutional: Well developed, well nourished, no acute distress, non-toxic appearance. [] HENT: Normocephalic, abrasion to center of forehead, bilateral external ears normal, oropharynx moist, no oral exudates, nose normal. [] Eyes: PERRLA, EOMI, conjunctiva normal, no discharge. [] Neck: Normal range of motion, no tenderness, supple, no stridor. [] Cardiovascular:Heart rate regular rhythm, no murmur [] Lungs & Thorax: Bilateral breath sounds clear to auscultation [] Abdomen: Bowel sounds normal, soft, no tenderness, no masses, no pulsatile masses. [] Skin: Warm, dry, no erythema, no rash. [] Back: No tenderness, no CVA tenderness. [] Extremities: No tenderness, no cyanosis, no clubbing, ROM intact, no edema. [] Neurologic: Alert and oriented X 3, normal motor function, normal sensory function, no focal deficits noted. [] Current Patient Data Vital Signs Vital Signs Date Time Temp Pulse Resp B/P (MAP) Pulse Ox O2 Delivery O2 Flow Rate FiO2 08/10/17 17:01 97.8 73 16 142/81 (101) 97 Room Air 97.8 Lab Values Laboratory Tests Test 08/10/17 16:58 08/10/17 17:20 Urine Collection Type Unknown Urine Color Yellow Urine Clarity Cloudy Urine pH 6.0 Urine Specific Laporte >=1.030 Urine Protein 30 mg/dL (NEG-TRACE) Urine Glucose (UA) >=1000 mg/dL (NEG) Urine Ketones (Stick) Negative mg/dL (NEG) Urine Blood Negative (NEG) Urine Nitrite Negative (NEG) Urine Bilirubin Negative (NEG) Urine Urobilinogen Dipstick 0.2 mg/dL (0.2 mg/dL) Urine Leukocyte Esterase Negative (NEG) Urine RBC 3-5 /HPF (0-2) Urine WBC 5-10 /HPF (0-4) Urine Squamous Epithelial Cells Mod /LPF Urine Bacteria Many /HPF (0-FEW) White Blood Count 8.3 x10^3/uL (4.0-11.0) Red Blood Count 4.46 x10^6/uL (3.50-5.40) Hemoglobin 10.8 g/dL (12.0-15.5) L Hematocrit 33.5 % (36.0-47.0) L Mean Corpuscular Volume 75 fL (79-100) L Mean Corpuscular Hemoglobin 24 pg (25-35) L Mean Corpuscular Hemoglobin Concent 32 g/dL (31-37) Red Cell Distribution Width 15.1 % (11.5-14.5) H Platelet Count 340 x10^3/uL (140-400) Neutrophils (%) (Auto) 50 % (31-73) Lymphocytes (%) (Auto) 40 % (24-48) Monocytes (%) (Auto) 7 % (0-9) Eosinophils (%) (Auto) 1 % (0-3) Basophils (%) (Auto) 2 % (0-3) Neutrophils # (Auto) 4.2 x10^3uL (1.8-7.7) Lymphocytes # (Auto) 3.3 x10^3/uL (1.0-4.8) Monocytes # (Auto) 0.6 x10^3/uL (0.0-1.1) Eosinophils # (Auto) 0.1 x10^3/uL (0.0-0.7) Basophils # (Auto) 0.1 x10^3/uL (0.0-0.2) POC Urine HCG, Qualitative Hcg negative (Negative) Sodium Level 138 mmol/L (136-145) Potassium Level 3.9 mmol/L (3.5-5.1) Chloride Level 102 mmol/L (98-107) Carbon Dioxide Level 27 mmol/L (21-32) Anion Gap 9 (6-14) Blood Urea Nitrogen 20 mg/dL (7-20) Creatinine 0.7 mg/dL (0.6-1.0) Estimated GFR (Cockcroft-Gault) 88.6 BUN/Creatinine Ratio 29 (6-20) H Glucose Level 274 mg/dL (70-99) H Calcium Level 9.8 mg/dL (8.5-10.1) Magnesium Level 1.4 mg/dL (1.8-2.4) L Total Bilirubin 0.1 mg/dL (0.2-1.0) L Aspartate Amino Transferase (AST) 17 U/L (15-37) Alanine Aminotransferase (ALT) 19 U/L (14-59) Alkaline Phosphatase 84 U/L (46-116) Creatine Kinase 69 U/L (26-192) Total Protein 7.6 g/dL (6.4-8.2) Albumin 3.6 g/dL (3.4-5.0) Albumin/Globulin Ratio 0.9 (1.0-1.7) L Laboratory Tests 08/10/17 17:20 Laboratory Tests 08/10/17 17:20 EKG EKG Sinus rhythm at 75 bpm with normal axis no obvious ST elevation or depression and normal T waves. Radiology/Procedures Radiology/Procedures CT scan of the head without contrast 08/10/2017 Clinical History: Headaches and dizziness. Patient struck her head on cabinet 2 days ago. Technique: Unenhanced, contiguous, 5 mm axial sections were obtained through the head. Findings: The ventricles and sulci are within normal limits in size and configuration. No focal area of abnormal attenuation is seen involving the brain parenchyma. No extra-axial fluid collection is seen. No skull fracture is seen. Impression: Negative study. Electronically signed by: Sherman Gonzalez MD (08/10/2017 5:27 PM) [facility] DICTATED and SIGNED BY: SHERMAN GONZALEZ MD DATE: 08/10/17 172 Course & Med Decision Making Course & Med Decision Making Patient with unremarkable workup for acute process. Sugar is elevated but no signs of acidosis or ketosis. Exam is slightly low so recommended magnesium supplementation. Patient has repeat normal neurologic exam and she has a normal gait walking to the bathroom. I told patient that she likely has concussion type symptoms so recommended PCP follow-up within 2-3 days and come back to the ED sooner with worsening pain fevers vomiting dizziness or other general concerns. Patient aware and agreeable with plan for discharge and verbalized understanding of the need for short-term follow-up and strict ED return precautions discussed worsening pain fevers vomiting or other general concerns. Dragon Disclaimer Dragon Disclaimer This electronic medical record was generated, in whole or in part, using a voice recognition dictation system. Departure Departure Impression: Primary Impression: CHI (closed head injury) Additional Impressions: Dizziness Hypomagnesemia Disposition: 01 HOME, SELF-CARE Condition: STABLE Referrals: ANDRES BALDWIN MD (PCP) Patient Instructions: Concussion and Brain Injury Additional Instructions: TAKE IBUPROFEN OR TYLENOL FOR PAIN. DRINK PLENTY OF FLUIDS AND EAT A GOOD DIABETIC DIET. FOLLOW WITH YOUR PCP AND COME BACK TO THE ED WITH WORSENING PAIN , FEVERS, VOMITING, OR OTHER GENERAL CONCERNS. THANK YOU! Problem Qualifiers Primary Impression: CHI (closed head injury) Encounter type: initial encounter Qualified Codes: S09.90XA - Unspecified injury of head, initial encounter CUAUHTEMOC LEGGETT DO Aug 10, 2017 17:15
[2017-08-10 17:26] LABS: BILIRUBIN,URINE NEGATIVE (NEG); GLUCOSE,URINE >=1000 mg/dL (NEG); NITRITE,URINE NEGATIVE (NEG); PROTEIN,URINE 30 mg/dL (NEG-TRACE); UROBILINOGEN,URINE 0.2 mg/dL (0.2 mg/dL)
[2017-08-10 17:30] VITALS: BP 120/71
--- NOTE | 2017-08-10 17:30 | RAD ---
CT scan of the head without contrast 08/10/2017 Clinical History: Headaches and dizziness. Patient struck her head on cabinet 2 days ago. Technique: Unenhanced, contiguous, 5 mm axial sections were obtained through the head. Findings: The ventricles and sulci are within normal limits in size and configuration. No focal area of abnormal attenuation is seen involving the brain parenchyma. No extra-axial fluid collection is seen. No skull fracture is seen. Impression: Negative study. Electronically signed by: Sherman Manzo MD (08/10/2017 5:27 PM) [facility]
[2017-08-10 17:37] LABS: BACTERIA,URINE MANY /HPF (0-FEW)
[2017-08-10 17:37] LABS: BASO # 0.1 x10^3/uL (0.0-0.2); BASO % 2 % (0-3); EOS % 1 % (0-3); HEMATOCRIT 33.5 % (36.0-47.0); HEMOGLOBIN 10.8 g/dL (12.0-15.5); LYMPH # 3.3 x10^3/uL (1.0-4.8); LYMPH % 40 % (24-48); MEAN CORPUSCULAR HEMOGLOBIN 24 pg (25-35); MEAN CORPUSCULAR HGB CONC 32 g/dL (31-37); MEAN CORPUSCULAR VOLUME 75 fL (79-100); MONO % 7 % (0-9); NEUT % 50 % (31-73); PLATELET COUNT 340 x10^3/uL (140-400); RED BLOOD COUNT 4.46 x10^6/uL (3.50-5.40); RED CELL DISTRIBUTION WIDTH 15.1 % (11.5-14.5); WHITE BLOOD COUNT 8.3 x10^3/uL (4.0-11.0)
[2017-08-10 17:38] LABS: SQUAMOUS EPITHELIAL CELL,UR MOD /LPF
[2017-08-10 17:50] LABS: CALCIUM 9.8 mg/dL (8.5-10.1); CREATININE 0.7 mg/dL (0.6-1.0); GFR 88.6; POTASSIUM 3.9 mmol/L (3.5-5.1)
[2017-08-10 17:56] LABS: ALBUMIN 3.6 g/dL (3.4-5.0); ALBUMIN/GLOBULIN RATIO 0.9 (1.0-1.7); MAGNESIUM 1.4 mg/dL (1.8-2.4); TOTAL BILIRUBIN 0.1 mg/dL (0.2-1.0); TOTAL PROTEIN 7.6 g/dL (6.4-8.2)
[2017-08-10] MEDS ORDERED: MAGNESIUM OXIDE 400 MG TABLET PO STA (17:59)
== END 2017-08-10 18:25 | disposition home or self-care (01) ==
LOC: ER 16:40
DX: S00.81XA Abrasion of other part of head, initial encounter (principal); S09.90XA Unspecified injury of head, initial encounter; E83.42 Hypomagnesemia; E10.40 Type 1 diabetes mellitus with diabetic neuropathy, unspecified; I10 Essential (primary) hypertension; E78.00 Pure hypercholesterolemia, unspecified; Z88.0 Allergy status to penicillin; W22.8XXA Striking against or struck by other objects, initial encounter; Y93.89 Activity, other specified; Y92.89 Other specified places as the place of occurrence of the external cause; Y99.8 Other external cause status
CPT/HCPCS: 36415; 70450; 80053; 81001; 81025; 82550; 83735; 85025; 87086; 93005; 96361; 96374; 96375; 99285; J2405; J3010; J7030

== ENCOUNTER 2017-08-30 10:12 | Emergency (ER) | payer OTHER ==
[2017-08-30 10:41] VITALS: BP 76/71
--- NOTE | 2017-08-30 11:42 | PHYS DOC ---
Past Medical History Past Medical History: Diabetes-Type I, High Cholesterol, Hypertension Additional Past Medical Histor: NEUROPATHY Past Surgical History: Other Additional Past Surgical Histo: carpal tunnel Alcohol Use: None Drug Use: None Adult General Chief Complaint Chief Complaint: LACERATION/AVULSION HPI HPI Patient is a 51 year old female who presents with left index finger laceration that happened yesterday. Patient states she got cut with opening a can. Patient is right-handed. Review of Systems Review of Systems Constitutional: Denies fever or chills [] Musculoskeletal: Denies back pain or joint pain [] Integument: Left index finger laceration Neurologic: Denies headache, focal weakness or sensory changes [] All other systems were reviewed and found to be within normal limits, except as documented in this note. Allergies Allergies Allergies Coded Allergies Type Severity Reaction Last Updated Verified Penicillins Adverse Reaction Intermediate vomiting 09/10/16 No Physical Exam Physical Exam Constitutional: Well developed, well nourished, no acute distress, non-toxic appearance. [] HENT: Normocephalic, atraumatic, bilateral external ears normal, oropharynx moist, no oral exudates, nose normal. [] Eyes: PERRLA, EOMI, conjunctiva normal, no discharge. [] Neck: Normal range of motion, no tenderness, supple, no stridor. [] Cardiovascular:Heart rate regular rhythm, no murmur [] Lungs & Thorax: Bilateral breath sounds clear to auscultation [] Abdomen: Bowel sounds normal, soft, no tenderness, no masses, no pulsatile masses. [] Skin: Warm, dry, left index finger distal and ventral aspect with a superficial skin avulsion type of laceration approximately 1 cm long. There is no tendon involvement. Patient able to flex and extend the left index finger at the MIP PIP and DIP joints. Adequate radius sensation to the left index finger. Cap refill less than 2 seconds the left index finger. +2 left radial pulse. Back: No tenderness, no CVA tenderness. [] Extremities: No tenderness, no cyanosis, no clubbing, ROM intact, no edema. [] Neurologic: Alert and oriented X 3, normal motor function, normal sensory function, no focal deficits noted. [] Psychologic: Affect normal, judgement normal, mood normal. [] Current Patient Data Vital Signs Vital Signs Date Time Temp Pulse Resp B/P (MAP) Pulse Ox O2 Delivery O2 Flow Rate FiO2 08/30/17 10:41 98.7 84 20 99 Room Air 98.7 EKG EKG [] Radiology/Procedures Radiology/Procedures [] Course & Med Decision Making Course & Med Decision Making Pertinent Labs and Imaging studies reviewed. (See chart for details) Patient has a superficial laceration to the left index finger that happened yesterday. Tetanus up-to-date. Provided wound care instructions as well as return precautions. Discharged in stable condition. Dragon Disclaimer Dragon Disclaimer This electronic medical record was generated, in whole or in part, using a voice recognition dictation system. Departure Departure Impression: Primary Impression: Laceration of left index finger Disposition: HOME, SELF-CARE Condition: STABLE Referrals: ANDRES BALDWIN MD (PCP) Follow up with your doctor in 1-2 weeks as needed Patient Instructions: Laceration Care, Adult, [id number] Additional Instructions: You were seen for left index finger laceration that happened yesterday. Keep the area clean and dry. Apply Neosporin to the area twice a day. Monitor the area for signs of infection including but not limited to increased redness to the area, yellow drainage from the area, warmth to the area and return to the ED or see your primary care doctor if they occur. Problem Qualifiers Primary Impression: Laceration of left index finger Encounter type: initial encounter Damage to nail status: without damage Foreign body presence: without foreign body Qualified Codes: S61.211A - Laceration without foreign body of left index finger without damage to nail, initial encounter DIANE REDMAN APRN Aug 30, 2017 11:42
== END 2017-08-30 11:53 | disposition home or self-care (01) ==
LOC: ER 10:12
DX: S61.211A Laceration without foreign body of left index finger without damage to nail, initial encounter (principal); E11.40 Type 2 diabetes mellitus with diabetic neuropathy, unspecified; E78.00 Pure hypercholesterolemia, unspecified; I10 Essential (primary) hypertension; Z88.0 Allergy status to penicillin; W26.8XXA Contact with other sharp object(s), not elsewhere classified, initial encounter; Y93.89 Activity, other specified; Y92.89 Other specified places as the place of occurrence of the external cause; Y99.8 Other external cause status
CPT/HCPCS: 99281

== ENCOUNTER 2017-10-13 08:58 | Emergency (ER) | payer OTHER | END 2017-10-13 10:40 | disposition home or self-care (01) | LOC: ER 08:58 | DX: K08.89 Other specified disorders of teeth and supporting structures (principal); K02.9 Dental caries, unspecified; E10.9 Type 1 diabetes mellitus without complications; E78.00 Pure hypercholesterolemia, unspecified; I10 Essential (primary) hypertension; Z79.4 Long term (current) use of insulin; Z88.0 Allergy status to penicillin | CPT/HCPCS: 99283 ==

== ENCOUNTER 2017-10-25 17:18 | Emergency (ER) | payer OTHER ==
[2017-10-25 17:57] LABS: BILIRUBIN,URINE NEGATIVE (NEG); CLARITY,URINE CLEAR; COLOR,URINE YELLOW; GLUCOSE,URINE >=1000 mg/dL (NEG); NITRITE,URINE NEGATIVE (NEG); PH,URINE 6.5; PROTEIN,URINE NEGATIVE (NEG-TRACE)
[2017-10-25 18:08] LABS: BACTERIA,URINE 0 /HPF (0-FEW); RBC,URINE 0 /HPF (0-2); SQUAMOUS EPITHELIAL CELL,UR FEW /LPF; WBC,URINE RARE /HPF (0-4)
[2017-10-25 18:28] LABS: NEG OBC UR NEG; POS OBC UR POS; U PREG PATIENT NEGATIVE (NEG)
[2017-10-25] MEDS: oxyCODONE/APAP 5/325 1 TAB TABLET PO ×2 (18:43)
== END 2017-10-25 19:38 | disposition home or self-care (01) ==
LOC: ER 17:18
DX: K59.00 Constipation, unspecified (principal); K02.9 Dental caries, unspecified; K62.89 Other specified diseases of anus and rectum; E11.40 Type 2 diabetes mellitus with diabetic neuropathy, unspecified; E78.00 Pure hypercholesterolemia, unspecified; I10 Essential (primary) hypertension; Z98.890 Other specified postprocedural states; Z88.0 Allergy status to penicillin
CPT/HCPCS: 74018; 81001; 81025; 99285-25

== ENCOUNTER 2018-02-10 11:59 | Emergency (ER) | payer OTHER | END 2018-02-10 13:30 | disposition home or self-care (01) | LOC: ER 11:59 | DX: S99.912A Unspecified injury of left ankle, initial encounter (principal); E11.9 Type 2 diabetes mellitus without complications; E78.00 Pure hypercholesterolemia, unspecified; I10 Essential (primary) hypertension; Z88.0 Allergy status to penicillin; W20.8XXA Other cause of strike by thrown, projected or falling object, initial encounter; Y93.01 Activity, walking, marching and hiking; Y92.009 Unspecified place in unspecified non-institutional (private) residence as the place of occurrence of the external cause; Y99.8 Other external cause status | CPT/HCPCS: 73590; 73610; 99284; L4350 ==

== ENCOUNTER 2018-03-06 14:11 | Emergency (ER) | payer OTHER | END 2018-03-06 15:04 | disposition home or self-care (01) | LOC: ER 14:11 | DX: L03.114 Cellulitis of left upper limb (principal); K06.9 Disorder of gingiva and edentulous alveolar ridge, unspecified; E78.00 Pure hypercholesterolemia, unspecified; I10 Essential (primary) hypertension; E11.40 Type 2 diabetes mellitus with diabetic neuropathy, unspecified; Z88.0 Allergy status to penicillin | CPT/HCPCS: 99283 ==

== ENCOUNTER 2018-06-04 14:35 | Emergency (ER) | payer OTHER ==
[~2018-06-04] VITALS: Ht 154.9 cm; Wt 75.7 kg
[~2018-06-04 14:35] MED LIST changes: +IBUP-1007 PO; +METF500T16 PO; -METF500T4 PO; +TRAM50TA PO
--- NOTE | 2018-06-04 16:22 | PHYS DOC ---
Past Medical History Past Medical History: Diabetes-Type II, High Cholesterol, Hypertension, Other Additional Past Medical Histor: NEUROPATHY Past Surgical History: , Other Additional Past Surgical Histo: carpal tunnel Alcohol Use: None Drug Use: None Adult General Chief Complaint Chief Complaint: TOE PROBLEM [facility] HPI Patient is a 52 year old female who presents with left ear pain for 2 months, left second toe pain for three days after injury, and request for test. Reports she stubbed her toe walking. Denies difficulty with ambulation. Review of Systems Review of Systems Constitutional: Denies fever or chills [] Eyes: Denies change in visual acuity, redness, or eye pain [] HENT: Denies nasal congestion or sore throat [] Respiratory: Denies cough or shortness of breath [] Cardiovascular: No additional information not addressed in HPI [] GI: Denies abdominal pain, nausea, vomiting, bloody stools or diarrhea [] : Denies dysuria or hematuria [] Musculoskeletal: Denies back pain or joint pain [] Integument: Denies rash or skin lesions [] Neurologic: Denies headache, focal weakness or sensory changes [] Endocrine: Denies polyuria or polydipsia [] All other systems were reviewed and found to be within normal limits, except as documented in this note. Allergies Allergies Allergies Coded Allergies Type Severity Reaction Last Updated Verified Penicillins Adverse Reaction Intermediate vomiting 09/10/16 No Physical Exam Physical Exam Constitutional: Well developed, well nourished, no acute distress, non-toxic appearance. [] HENT: Normocephalic, atraumatic, bilateral external ears normal, oropharynx moist, no oral exudates, nose normal. [] Eyes: PERRLA, EOMI, conjunctiva normal, no discharge. [] Neck: Normal range of motion, no tenderness, supple, no stridor. [] Cardiovascular:Heart rate regular rhythm, no murmur [] Lungs & Thorax: Bilateral breath sounds clear to auscultation [] Abdomen: Bowel sounds normal, soft, no tenderness, no masses, no pulsatile masses. [] Skin: Warm, dry, no erythema, no rash. [] Back: No tenderness, no CVA tenderness. [] Extremities: No tenderness, no cyanosis, no clubbing, ROM intact, no edema. [] Neurologic: Alert and oriented X 3, normal motor function, normal sensory function, no focal deficits noted. [] Psychologic: Affect normal, judgement normal, mood normal. [] Current Patient Data Vital Signs Vital Signs Date Time Temp Pulse Resp B/P (MAP) Pulse Ox O2 Delivery O2 Flow Rate FiO2 06/04/18 16:16 97.9 90 20 203/100 (134) Room Air 97.9 Lab Values Laboratory Tests Test 06/04/18 16:59 POC Urine HCG, Qualitative Hcg negative (Negative) EKG EKG [] Radiology/Procedures Radiology/Procedures [] Impressions: 1. Left otitis externa 2. Contusion left foot Course & Med Decision Making Course & Med Decision Making Pertinent Labs and Imaging studies reviewed. (See chart for details) [] Dragon Disclaimer Dragon Disclaimer This electronic medical record was generated, in whole or in part, using a voice recognition dictation system. Departure Departure Impression: Primary Impression: Otitis externa of left ear Additional Impressions: Contusion of left foot test negative Disposition: 01 HOME, SELF-CARE Condition: STABLE Referrals: ANDRES BALDWIN MD (PCP) LUMA HENDERSON MD Patient Instructions: Contusion, [id number], Otitis Externa, [id number] Additional Instructions: Follow up with primary in 1-2 days. See ortho for foot this week. Return if problems or concerns. Take medications as prescribed. Problem Qualifiers SERENA FUENTES APRN Jun 04, 2018 16:22
--- NOTE | 2018-06-04 17:11 | RAD ---
Left foot, 3 views, 06/04/2018: HISTORY: Second toe pain, injury No fracture or dislocation is identified. IMPRESSION: No acute bony abnormality is detected. Electronically signed by: Rey Abreu MD (06/04/2018 5:08 PM) [facility]
[2018-06-04 17:45] VITALS: BP 146/80
== END 2018-06-04 17:46 | disposition home or self-care (01) ==
LOC: ER 14:35
DX: Z32.02 Encounter for pregnancy test, result negative (principal); S90.32XA Contusion of left foot, initial encounter; H66.92 Otitis media, unspecified, left ear; E78.00 Pure hypercholesterolemia, unspecified; I10 Essential (primary) hypertension; E11.40 Type 2 diabetes mellitus with diabetic neuropathy, unspecified; Z88.0 Allergy status to penicillin; W22.8XXA Striking against or struck by other objects, initial encounter; Y93.89 Activity, other specified; Y92.89 Other specified places as the place of occurrence of the external cause; Y99.8 Other external cause status
CPT/HCPCS: 73630; 81025; 99284

== ENCOUNTER 2018-06-08 15:08 | Emergency (ER) | payer OTHER ==
[~2018-06-08] VITALS: Ht 157.5 cm; Wt 75.7 kg
[2018-06-08 15:45] VITALS: BP 127/74
[2018-06-08] MEDS ORDERED: LIDOCAINE WITH 8.4% SOD BICARB 3 ML DISP.SYRIN. INJ ONE (16:00)
[2018-06-08] MEDS ORDERED: CEPH-264 PO (16:24)
--- NOTE | 2018-06-08 16:25 | PHYS DOC ---
Past Medical History Past Medical History: Diabetes-Type I, Diabetes-Type II Additional Past Medical Histor: NEUROPATHY Past Surgical History: Additional Past Surgical Histo: carpal tunnel Alcohol Use: Rarely Drug Use: None Adult General Chief Complaint Chief Complaint: HAND PROBLEM HPI HPI Patient is a 52 year old female who presents with an infected blister to the bottom of her left hand. The patient states that she has had this happen several times. She states that she will get an itchy blister and as she keeps scratching at it it will turn infected. She states that the last time this happened she had streaks running up her hand. She does have a pus pool noted in the blister. She has not tried any [id number] medications to treat her infection. Review of Systems Review of Systems Constitutional: Denies fever or chills [] Respiratory: Denies cough or shortness of breath [] Cardiovascular: No additional information not addressed in HPI [] GI: Denies abdominal pain, nausea, vomiting, bloody stools or diarrhea [] : Denies dysuria or hematuria [] Musculoskeletal: Denies back pain or joint pain [] Integument: See history of present illness Neurologic: Denies headache, focal weakness or sensory changes [] Endocrine: Denies polyuria or polydipsia [] All other systems were reviewed and found to be within normal limits, except as documented in this note. Current Medications Current Medications Current Medications Medications (Trade) Dose Ordered Sig/[facility] Start Time Stop Time Status Last Admin Dose Admin Lidocaine/Sodium Bicarbonate (Buffered Lidocaine 1%) 3 ml 1X ONCE 06/08/18 16:00 06/08/18 16:02 DC 06/08/18 16:22 3 ML Allergies Allergies Allergies Coded Allergies Type Severity Reaction Last Updated Verified Penicillins Adverse Reaction Intermediate vomiting 09/10/16 No Physical Exam Physical Exam Constitutional: Well developed, well nourished, no acute distress, non-toxic appearance. [] Cardiovascular:Heart rate regular rhythm, no murmur [] Lungs & Thorax: Bilateral breath sounds clear to auscultation [] Abdomen: Bowel sounds normal, soft, no tenderness, no masses, no pulsatile masses. [] Skin: There is a 1 cm blister to the palmar aspect of the right hand with a small pus pool noted underneath Back: No tenderness, no CVA tenderness. [] Extremities: No tenderness, no cyanosis, no clubbing, ROM intact, no edema. [] Neurologic: Alert and oriented X 3, normal motor function, normal sensory function, no focal deficits noted. [] Psychologic: Affect normal, judgement normal, mood normal. [] Current Patient Data Vital Signs Vital Signs Date Time Temp Pulse Resp B/P (MAP) Pulse Ox O2 Delivery O2 Flow Rate FiO2 06/08/18 15:45 98.2 87 18 127/74 (91) 99 Room Air 98.2 EKG EKG [] Radiology/Procedures Radiology/Procedures []Lidocaine was injected to the cleaned blister and an 18-gauge needle was used to unroofed and drain the purulent material. The patient tolerated the procedure well. The hand was dressed with a Band-Aid. Course & Med Decision Making Course & Med Decision Making Pertinent Labs and Imaging studies reviewed. (See chart for details) [] Dragon Disclaimer Dragon Disclaimer This electronic medical record was generated, in whole or in part, using a voice recognition dictation system. Departure Departure Impression: Primary Impression: Infected blister of hand Disposition: HOME, SELF-CARE Condition: STABLE Referrals: ANDRES BALDWIN MD (PCP) Patient Instructions: Skin Infections Additional Instructions: Take the antibiotic as directed. Keep your hands clean and dry. Follow-up with your primary care provider in 3 days if not improving or return to the emergency department if worsening. If the antibiotic does cause a yeast infection you may use [id number] Monistat. Scripts Cephalexin (KEFLEX) 500 Mg Capsule 1 CAP PO TID, #30 CAP Prov: KIERSTEN APODACA APRN 06/08/18 KIERSTEN APODACA APRN Jun 08, 2018 16:25
== END 2018-06-08 16:34 | disposition home or self-care (01) ==
LOC: ER 15:08
DX: S60.522A Blister (nonthermal) of left hand, initial encounter (principal); E11.9 Type 2 diabetes mellitus without complications; Z98.890 Other specified postprocedural states; Z88.0 Allergy status to penicillin; X58.XXXA Exposure to other specified factors, initial encounter; Y93.89 Activity, other specified; Y92.89 Other specified places as the place of occurrence of the external cause; Y99.8 Other external cause status
CPT/HCPCS: 10060; 96372; 99283

== ENCOUNTER 2018-06-15 13:32 | Emergency (ER) | payer OTHER ==
[~2018-06-15] VITALS: Ht 152.4 cm; Wt 79.8 kg
[~2018-06-15 13:32] MED LIST changes: +CEPH-264 PO
[2018-06-15 14:06] LABS: BILIRUBIN,URINE NEGATIVE (NEG); CLARITY,URINE CLEAR; COLOR,URINE YELLOW; NITRITE,URINE NEGATIVE (NEG); PH,URINE 5.5; PROTEIN,URINE NEGATIVE (NEG-TRACE); UROBILINOGEN,URINE 0.2 mg/dL (0.2 mg/dL)
[2018-06-15 14:18] LABS: BACTERIA,URINE FEW /HPF (0-FEW); RBC,URINE 0 /HPF (0-2); SQUAMOUS EPITHELIAL CELL,UR MOD /LPF
[2018-06-15 14:19] LABS: YEAST,URINE PRESENT /HPF
--- NOTE | 2018-06-15 14:45 | RAD ---
3 views lumbar spine 06/15/2018 1:57 PM Indication: TWISTED BACK FOR DAYS AGO Comparison: CT of the abdomen and pelvis December 04, 2012 Findings: No evidence of acute fracture or alignment abnormality is identified. Vertebral body heights are maintained. Diffuse disc space narrowing is seen most prominent in the inferior lumbar spine. There is grade 1 anterolisthesis of L4 on L5. Facet arthrosis is seen at L3-S1. No evidence of spondylolysis is identified. No acute soft tissue abnormality is appreciated. IMPRESSION: Mild degenerative changes of the lumbar spine without evidence of acute fracture or alignment abnormality. Electronically signed by: Cameron Man MD (06/15/2018 2:42 PM) [facility]
[2018-06-15] MEDS ORDERED: FLUCONAZOLE 100 MG TABLET. PO ONE (15:00)
--- NOTE | 2018-06-15 15:08 | PHYS DOC ---
Past Medical History Past Medical History: Diabetes-Type II, High Cholesterol, Hypertension, Other Additional Past Medical Histor: NEUROPATHY Past Surgical History: , Other Additional Past Surgical Histo: carpal tunnel Alcohol Use: None Drug Use: None Adult General Chief Complaint Chief Complaint: BACK PAIN OR INJURY [facility] HPI Patient is a 52 year old female with history of diabetes type 2, hypertension, high cholesterol, who presents today complaining of low back pain. Patient states she lives in the [facility]. She states she hit her left knee on a piece a branch couple days ago. She states since then she's had intermittent episodes of left low back pain nonradiating worse when she is voiding. Patient denies any loss of bowel bladder function. She states she is on several diabetes medications including oral as well as injectables. She also states she feels her left low back is swollen. Patient denies falling or any injury to her back. Review of Systems Review of Systems Constitutional: Denies fever or chills [] Eyes: Denies change in visual acuity, redness, or eye pain [] HENT: Denies nasal congestion or sore throat [] Respiratory: Denies cough or shortness of breath [] Cardiovascular: No additional information not addressed in HPI [] GI: Denies abdominal pain, nausea, vomiting, bloody stools or diarrhea [] : Denies dysuria or hematuria [] Musculoskeletal: Reports back pain Integument: Denies rash or skin lesions [] Neurologic: Denies headache, focal weakness or sensory changes [] All other systems were reviewed and found to be within normal limits, except as documented in this note. Current Medications Current Medications Current Medications Medications (Trade) Dose Ordered Sig/[facility] Start Time Stop Time Status Last Admin Dose Admin Fluconazole (Diflucan) 200 mg 1X ONCE 06/15/18 15:00 06/15/18 15:03 DC Allergies Allergies Allergies Coded Allergies Type Severity Reaction Last Updated Verified Penicillins Adverse Reaction Intermediate vomiting 09/10/16 No Physical Exam Physical Exam Constitutional: Well developed, well nourished, no acute distress, non-toxic appearance. [] HENT: Normocephalic, atraumatic, bilateral external ears normal, oropharynx moist, no oral exudates, nose normal. [] Eyes: PERRLA, EOMI, conjunctiva normal, no discharge. [] Neck: Normal range of motion, no tenderness, supple, no stridor. [] Cardiovascular:Heart rate regular rhythm, no murmur [] Lungs & Thorax: Bilateral breath sounds clear to auscultation [] Abdomen: Bowel sounds normal, soft, no tenderness, no masses, no pulsatile masses. [] Skin: Warm, dry, no erythema, no rash. [] Back: No tenderness, no CVA tenderness. [] Extremities: No tenderness, no cyanosis, no clubbing, ROM intact, no edema. [] Neurologic: Alert and oriented X 3, normal motor function, normal sensory function, no focal deficits noted. [] Psychologic: Affect normal, judgement normal, mood normal. [] Current Patient Data Vital Signs Vital Signs Date Time Temp Pulse Resp B/P (MAP) Pulse Ox O2 Delivery O2 Flow Rate FiO2 06/15/18 13:45 98.0 80 20 137/65 (89) 98 Room Air 98.0 Lab Values Laboratory Tests Test 06/15/18 13:40 06/15/18 13:57 Urine Collection Type Void Urine Color Yellow Urine Clarity Clear Urine pH 5.5 Urine Specific [place] >=1.030 Urine Protein Negative mg/dL (NEG-TRACE) Urine Glucose (UA) >=1000 mg/dL (NEG) Urine Ketones (Stick) Trace mg/dL (NEG) Urine Blood Negative (NEG) Urine Nitrite Negative (NEG) Urine Bilirubin Negative (NEG) Urine Urobilinogen Dipstick 0.2 mg/dL (0.2 mg/dL) Urine Leukocyte Esterase Negative (NEG) Urine RBC 0 /HPF (0-2) Urine WBC 1-4 /HPF (0-4) Urine Squamous Epithelial Cells Mod /LPF Urine Bacteria Few /HPF (0-FEW) Urine Yeast Present /HPF POC Urine HCG, Qualitative Hcg negative (Negative) EKG EKG [] Radiology/Procedures Radiology/Procedures []PROCEDURE: LUMBAR SPINE 2-3V 3 views lumbar spine 06/15/2018 1:57 PM Indication: TWISTED BACK FOR DAYS AGO Comparison: CT of the abdomen and pelvis December 04, 2012 Findings: No evidence of acute fracture or alignment abnormality is identified. Vertebral body heights are maintained. Diffuse disc space narrowing is seen most prominent in the inferior lumbar spine. There is grade 1 anterolisthesis of L4 on L5. Facet arthrosis is seen at L3-S1. No evidence of spondylolysis is identified. No acute soft tissue abnormality is appreciated. IMPRESSION: Mild degenerative changes of the lumbar spine without evidence of acute fracture or alignment abnormality. Electronically signed by: Cameron Box MD (06/15/2018 2:42 PM) [facility] DICTATED and SIGNED BY: CAMERON BOX MD DATE: 06/15/18 1439 Course & Med Decision Making Course & Med Decision Making Pertinent Labs and Imaging studies reviewed. (See chart for details) This is a 52-year-old female patient presented to the ED today with complaints of low back pain, left low back swelling, no known injury. Pain worse on voiding. Lumbar spine x-rays interpreted by radiologist were noted for DJD otherwise no acute findings. Urine analysis is negative for infection, noted for yeast. Glucose >1000 with trace ketones, patient states she has history of diabetes type 2 and is on several medications. She states her average blood glucose is around 300s. Patient was discharged with cyclobenzaprine. Instructed to take Tylenol /Motrin for her pain. She was treated for the yeast infection with 1 dose of fluconazole in the ED. She is to follow-up with her PCP next week. Dragon Disclaimer Dragon Disclaimer This electronic medical record was generated, in whole or in part, using a voice recognition dictation system. Departure Departure Impression: Primary Impression: Yeast infection Additional Impression: Low back pain Disposition: 01 HOME, SELF-CARE Condition: STABLE Referrals: ANDRES BALDWIN MD (PCP) follow up in one week Patient Instructions: Back Pain, Adult, [id number] Additional Instructions: You were evaluated in the emergency room for back pain, your back x-rays shows you have arthritis in your back. Please take the prescribed medications as needed for pain. Please ice and elevate the affected areas. Follow-up with the primary care doctor next week. Come back to the ED at any point symptoms worsen. Scripts Diclofenac Sodium (DICLOFENAC SODIUM) 50 Mg Tablet. 1 TAB PO BID PRN for PAIN, #12 TAB 0 Refills Prov: EMMANUELUNGADIANE BIOMETRIC TECHNICIAN 06/15/18 Cyclobenzaprine Hcl (CYCLOBENZAPRINE HCL) 10 Mg Tablet 1 TAB PO TID, #30 TAB Prov: MUTUNGADIANE BIOMETRIC TECHNICIAN 06/15/18 Problem Qualifiers Additional Impression: Low back pain Chronicity: acute Back pain laterality: unspecified Sciatica presence: without sciatica Qualified Codes: M54.5 - Low back pain DIANE REDMAN APRN Jun 15, 2018 15:08
[2018-06-15] MEDS ORDERED: DICL50TA4 PO (15:13)
[2018-06-15] MEDS ORDERED: CYCL10TA2 PO (15:13)
[2018-06-15 16:28] VITALS: BP 138/75
== END 2018-06-15 16:37 | disposition home or self-care (01) ==
LOC: ER 13:32
DX: M54.5 Low back pain (principal); E11.40 Type 2 diabetes mellitus with diabetic neuropathy, unspecified; B37.9 Candidiasis, unspecified; E78.00 Pure hypercholesterolemia, unspecified; I10 Essential (primary) hypertension; Z88.0 Allergy status to penicillin
CPT/HCPCS: 72100; 81001; 81025; 99285-25

== ENCOUNTER 2018-07-11 15:10 | Emergency (ER) | payer OTHER ==
[~2018-07-11] VITALS: Ht 154.9 cm; Wt 79.4 kg
[~2018-07-11 15:10] MED LIST changes: +DICL50TA4 PO
[2018-07-11 16:10] VITALS: BP 140/83
[2018-07-11] MEDS ORDERED: KETOROLAC 60 MG/2 ML INJ. IM ONE (16:15)
[2018-07-11] MEDS ORDERED: ORPHENADRINE CITRATE 60 MG/2 ML VIAL. IM ONE (16:15)
--- NOTE | 2018-07-11 16:46 | PHYS DOC ---
Past Medical History Past Medical History: Diabetes-Type II, High Cholesterol, Hypertension, Other Additional Past Medical Histor: NEUROPATHY Past Surgical History: , Other Additional Past Surgical Histo: carpal tunnel Alcohol Use: None Drug Use: None Adult General Chief Complaint Chief Complaint: MECHANICAL FALL HPI HPI Patient is a 52 year old female who presents with falling backward at 1000 this morning after tripping on the rug behind her and hitting the right back of head. Denies loc, nausea, vomiting, visual changes, numbness, tingling. Patietn states that the right neck and right side of the head hurt. Review of Systems Review of Systems Constitutional: Denies fever or chills [] Eyes: Denies change in visual acuity, redness, or eye pain [] HENT: Denies nasal congestion or sore throat [] Respiratory: Denies cough or shortness of breath [] Cardiovascular: No additional information not addressed in HPI [] GI: Denies abdominal pain, nausea, vomiting, bloody stools or diarrhea [] : Denies dysuria or hematuria [] Musculoskeletal: Denies back pain or joint pain [] Integument: Denies rash or skin lesions [] Neurologic: Denies headache, focal weakness or sensory changes [] Endocrine: Denies polyuria or polydipsia [] All other systems were reviewed and found to be within normal limits, except as documented in this note. Current Medications Current Medications Current Medications Medications (Trade) Dose Ordered Sig/[facility] Start Time Stop Time Status Last Admin Dose Admin Ketorolac Tromethamine (Toradol Im) 60 mg 1X ONCE 07/11/18 16:15 07/11/18 16:16 DC 07/11/18 16:29 60 MG Orphenadrine Citrate (Norflex) 60 mg 1X ONCE 07/11/18 16:15 07/11/18 16:16 DC 07/11/18 16:29 60 MG Allergies Allergies Allergies Coded Allergies Type Severity Reaction Last Updated Verified Penicillins Adverse Reaction Intermediate vomiting 09/10/16 No Physical Exam Physical Exam Constitutional: Well developed, well nourished, no acute distress, non-toxic appearance. [] HENT: Normocephalic, atraumatic, bilateral external ears normal, oropharynx moist, no oral exudates, nose normal. [] Eyes: PERRLA, EOMI, conjunctiva normal, no discharge. [] Neck: Normal range of motion, no tenderness, supple, no stridor. [] Cardiovascular:Heart rate regular rhythm, no murmur [] Lungs & Thorax: Bilateral breath sounds clear to auscultation [] Abdomen: Bowel sounds normal, soft, no tenderness, no masses, no pulsatile masses. [] Skin: Warm, dry, no erythema, no rash. [] Back: No tenderness, no CVA tenderness. [] Extremities: No tenderness, no cyanosis, no clubbing, ROM intact, no edema. [] Neurologic: Alert and oriented X 3, normal motor function, normal sensory function, no focal deficits noted. [] Psychologic: Affect normal, judgement normal, mood normal. [] Current Patient Data Vital Signs Vital Signs Date Time Temp Pulse Resp B/P (MAP) Pulse Ox O2 Delivery O2 Flow Rate FiO2 07/11/18 16:10 98.6 89 16 140/83 (102) 96 Room Air 98.6 EKG EKG [] Radiology/Procedures Radiology/Procedures CT Head and Cervical spine Impressions: [facility] [address] [place], [place] [id number] IMAGING REPORT Signed PATIENT: JEAN-PAUL DUDLEY ACCOUNT: [id number] : 1965 LOCATION: ER AGE: 52 SEX: F EXAM STATUS: REG ER ORD. PHYSICIAN: RAGHAV SHARP APRN REASON: FALL PROCEDURE: CT HEAD AND CERVICAL SPINE [facility] Compliance statement: One or more of the following individualized dose reduction techniques were utilized for this examination: 1. Automated exposure control. 2. Adjustment of the mA and/or kV according to patient size. 3. Use of iterative reconstruction technique. Indication:FALL, INJURY. PREVIOUS SENT TECHNIQUE: CT head without IV contrast COMPARISON:08/10/2017 FINDINGS: No pathologic extra-axial or intra-axial fluid collection. The ventricles and basal cisterns are within normal limits. No acute intracranial bleed. No focal loss of farmer-white differentiation. The orbits are within normal limits. No acute calvarial fractures. Visualized paranasal sinuses and mastoid air cells are clear. IMPRESSION: No acute intracranial process. Indication:FALL, INJURY. PREVIOUS SENT TECHNIQUE: CT of the cervical spine without IV contrast with multiplanar reformats. COMPARISON:None FINDINGS: The cervical spine is in normal anatomic alignment. Atlantoaxial joint interval is preserved. No compression deformities. Facet joints are in normal anatomic alignment. No acute fractures. Multilevel intervertebral disc space narrowing seen with endplate sclerosis and small anterior and posterior osteophyte formation. Multilevel mild to moderate facet arthropathy seen. The noncontrast appearance of the neck soft tissue is within normal limits. Clear lung apices. Segmental analysis: C2-C3: Mild circumferential disc bulge. Mild right facet arthropathy. Mild right neuroforamina narrowing. C3-C4: Circumferential disc bulge with right paracentral disc osteophyte complex indenting anterior thecal sac. Severe left and mild right facet arthropathy. Severe bilateral neuroforamina narrowing. C4-C5: Circumferential disc bulge with superimposed central disc osteophyte complex indenting anterior thecal sac. Moderate bilateral facet arthropathy. There is moderate to severe spinal canal narrowing measuring 4 mm in AP dimension. Severe bilateral neuroforamina narrowing. C5-C6: Circumferential disc bulge with left paracentral disc osteophyte complex. Mild bilateral facet arthropathy. Severe bilateral neuroforamina narrowing. C6-C7: Circumferential disc bulge with right paracentral disc osteophyte complex. Mild bilateral facet arthropathy. Severe spinal canal narrowing measuring 5 mm in AP dimension. IMPRESSION: 1. No acute fractures. 2. Multilevel degenerative disc disease with facet arthropathy as described above causing varying amount of neuroforaminal narrowing and spinal canal stenosis. Electronically signed by: Manohar Lazaro DO (07/11/2018 4:49 PM) [facility] DICTATED and SIGNED BY: MANOHAR LAZARO DO DATE: 07/11/18 1642 Course & Med Decision Making Course & Med Decision Making Patient is a 52 year old female who presents with falling backward at 1000 this morning after tripping on the rug behind her and hitting the right back of head. Denies loc, nausea, vomiting, visual changes, numbness, tingling. Patient states that the right neck and right side of the head hurt. Right back of head has no bruising, laceration, redness, or bump. There is tenderness to the Right neck and right back of head. There are no deformities to the neck or head. Patient denies any other injury from the fall. She is alert and oriented. Neurologically intact. PERRLA. Lungs are clear to auscultation. ROM in neck is limited due to pain. There is no bony spine tenderness from cervical spine down to sacrum. Heart rate regular without murmur. CT cervical spine shows 1. No acute fractures. 2. Multilevel degenerative disc disease with facet arthropathy as described above causing varying amount of neuroforaminal narrowing and spinal canal stenosis. CT Head shows No acute intracranial process. Patient to follow up with her primary care. I will give her a prescription for [place] and muscle relaxers. Patietn can also use Ibuprofen or heat for pain relief. [] Dragon Disclaimer Dragon Disclaimer This electronic medical record was generated, in whole or in part, using a voice recognition dictation system. Departure Departure Impression: Primary Impression: Neck pain Disposition: 01 HOME, SELF-CARE Referrals: ANDRES BALDWIN MD (PCP) Patient Instructions: Fall Prevention and Home Safety Additional Instructions: Patient to follow up with her primary care. I will give a prescription for [place] and muscle relaxers. Patient can also use Ibuprofen or heat for pain relief. Scripts Cyclobenzaprine Hcl (CYCLOBENZAPRINE HCL) 10 Mg Tablet 10 MG PO TID, #20 TAB Prov: RAGHAV SHARP APRN 07/11/18 Hydrocodone/Apap 5-325 (NORCO 5-325 TABLET) 1 Each Tablet 1 TAB PO PRN Q6HRS PRN for PAIN, #6 TAB 0 Refills Prov: RAGHAV SHARP APRN 07/11/18 RAGHAV SHARP APRN Jul 11, 2018 16:46
--- NOTE | 2018-07-11 16:53 | RAD ---
[facility] Compliance statement: One or more of the following individualized dose reduction techniques were utilized for this examination: 1. Automated exposure control. 2. Adjustment of the mA and/or kV according to patient size. 3. Use of iterative reconstruction technique. Indication:FALL, INJURY. PREVIOUS SENT TECHNIQUE: CT head without IV contrast COMPARISON:08/10/2017 FINDINGS: No pathologic extra-axial or intra-axial fluid collection. The ventricles and basal cisterns are within normal limits. No acute intracranial bleed. No focal loss of farmer-white differentiation. The orbits are within normal limits. No acute calvarial fractures. Visualized paranasal sinuses and mastoid air cells are clear. IMPRESSION: No acute intracranial process. Indication:FALL, INJURY. PREVIOUS SENT TECHNIQUE: CT of the cervical spine without IV contrast with multiplanar reformats. COMPARISON:None FINDINGS: The cervical spine is in normal anatomic alignment. Atlantoaxial joint interval is preserved. No compression deformities. Facet joints are in normal anatomic alignment. No acute fractures. Multilevel intervertebral disc space narrowing seen with endplate sclerosis and small anterior and posterior osteophyte formation. Multilevel mild to moderate facet arthropathy seen. The noncontrast appearance of the neck soft tissue is within normal limits. Clear lung apices. Segmental analysis: C2-C3: Mild circumferential disc bulge. Mild right facet arthropathy. Mild right neuroforamina narrowing. C3-C4: Circumferential disc bulge with right paracentral disc osteophyte complex indenting anterior thecal sac. Severe left and mild right facet arthropathy. Severe bilateral neuroforamina narrowing. C4-C5: Circumferential disc bulge with superimposed central disc osteophyte complex indenting anterior thecal sac. Moderate bilateral facet arthropathy. There is moderate to severe spinal canal narrowing measuring 4 mm in AP dimension. Severe bilateral neuroforamina narrowing. C5-C6: Circumferential disc bulge with left paracentral disc osteophyte complex. Mild bilateral facet arthropathy. Severe bilateral neuroforamina narrowing. C6-C7: Circumferential disc bulge with right paracentral disc osteophyte complex. Mild bilateral facet arthropathy. Severe spinal canal narrowing measuring 5 mm in AP dimension. IMPRESSION: 1. No acute fractures. 2. Multilevel degenerative disc disease with facet arthropathy as described above causing varying amount of neuroforaminal narrowing and spinal canal stenosis. Electronically signed by: Manohar Lazaro DO (07/11/2018 4:49 PM) [facility]
[2018-07-11] MEDS ORDERED: CYCL10TA2 PO (17:00)
[2018-07-11] MEDS ORDERED: HYDR-971 PO (17:00)
== END 2018-07-11 17:58 | disposition home or self-care (01) ==
LOC: ER 15:10
DX: G89.11 Acute pain due to trauma (principal); M54.2 Cervicalgia; E11.9 Type 2 diabetes mellitus without complications; E78.00 Pure hypercholesterolemia, unspecified; I10 Essential (primary) hypertension; Z88.0 Allergy status to penicillin; W01.198A Fall on same level from slipping, tripping and stumbling with subsequent striking against other object, initial encounter; Y93.89 Activity, other specified; Y92.89 Other specified places as the place of occurrence of the external cause; Y99.8 Other external cause status
CPT/HCPCS: 70450; 72125; 96372; 99284; J1885; J2360

== ENCOUNTER 2018-08-18 11:43 | Emergency (ER) | payer OTHER ==
[~2018-08-18] VITALS: Ht 162.6 cm; Wt 79.4 kg
[2018-08-18 11:59] VITALS: BP 119/80
--- NOTE | 2018-08-18 13:26 | RAD ---
3 views left knee 08/18/2018 12:43 PM Indication: PT FELL YESTERDAY. PAIN TO LT KNEE Comparison: None available Findings: No fracture or dislocation is identified. Articular surfaces are uninterrupted. No evidence of joint effusion or other acute soft tissue normality is seen. IMPRESSION: No radiographic evidence of acute osseous abnormality Electronically signed by: Cameron Man MD (08/18/2018 1:22 PM) [id number]
[2018-08-18] MEDS ORDERED: IBUP-1007 PO (13:42)
--- NOTE | 2018-08-18 13:42 | PHYS DOC ---
Past Medical History Past Medical History: Diabetes-Type II, High Cholesterol, Hypertension, Other Additional Past Medical Histor: NEUROPATHY Past Surgical History: , Other Additional Past Surgical Histo: carpal tunnel Alcohol Use: None Drug Use: None Adult General Chief Complaint Chief Complaint: LOWEREXTREMITY INJURY [facility] HPI Patient is a 52 year old female who presents with Slipped and fell on ice last night at 2115. Patient states that she fell on her left knee. Patient can walk on the knee and bend and extend the knee without any pain. Review of Systems Review of Systems Constitutional: Denies fever or chills [] Eyes: Denies change in visual acuity, redness, or eye pain [] HENT: Denies nasal congestion or sore throat [] Respiratory: Denies cough or shortness of breath [] Cardiovascular: No additional information not addressed in HPI [] GI: Denies abdominal pain, nausea, vomiting, bloody stools or diarrhea [] : Denies dysuria or hematuria [] Musculoskeletal: Denies back pain. Left knee joint pain [] Integument: Denies rash or skin lesions [] Neurologic: Denies headache, focal weakness or sensory changes [] Endocrine: Denies polyuria or polydipsia [] All other systems were reviewed and found to be within normal limits, except as documented in this note. Allergies Allergies Allergies Coded Allergies Type Severity Reaction Last Updated Verified Penicillins Adverse Reaction Intermediate vomiting 09/10/16 No Physical Exam Physical Exam Constitutional: Well developed, well nourished, no acute distress, non-toxic appearance. [] HENT: Normocephalic, atraumatic, bilateral external ears normal, oropharynx moist, no oral exudates, nose normal. [] Eyes: PERRLA, EOMI, conjunctiva normal, no discharge. [] Neck: Normal range of motion, no tenderness, supple, no stridor. [] Cardiovascular:Heart rate regular rhythm, no murmur [] Lungs & Thorax: Bilateral breath sounds clear to auscultation [] Abdomen: Bowel sounds normal, soft, no tenderness, no masses, no pulsatile masses. [] Skin: Warm, dry, no erythema, no rash. [] Back: No tenderness, no CVA tenderness. [] Extremities: Left knee tenderness, no cyanosis, no clubbing, ROM intact, no edema. [] Neurologic: Alert and oriented X 3, normal motor function, normal sensory function, no focal deficits noted. [] Psychologic: Affect normal, judgement normal, mood normal. [] Current Patient Data Vital Signs Vital Signs Date Time Temp Pulse Resp B/P (MAP) Pulse Ox O2 Delivery O2 Flow Rate FiO2 08/18/18 11:59 98.3 100 20 119/80 (93) 98 Room Air 98.3 EKG EKG [] Radiology/Procedures Radiology/Procedures [] Impressions: [facility] [address] [place] [address] IMAGING REPORT Signed PATIENT: JEAN-PAUL DUDLEY ACCOUNT: [id number] : 1965 LOCATION: ER AGE: 52 SEX: F EXAM STATUS: REG ER ORD. PHYSICIAN: RAGHAV SHARP APRN REASON: FALL, LEFT KNEE PAIN PROCEDURE: KNEE LEFT 4V 3 views left knee 08/18/2018 12:43 PM Indication: PT FELL YESTERDAY. PAIN TO LT KNEE Comparison: None available Findings: No fracture or dislocation is identified. Articular surfaces are uninterrupted. No evidence of joint effusion or other acute soft tissue normality is seen. IMPRESSION: No radiographic evidence of acute osseous abnormality Electronically signed by: Cameron Box MD (08/18/2018 1:22 PM) [id number] DICTATED and SIGNED BY: CAMERON BOX MD DATE: 08/18/18 1321 Course & Med Decision Making Course & Med Decision Making Patient is a 52 year old female who presents with Slipped and fell on ice last night at 2114. Patient states that she fell on her left knee. Patient can walk on the left knee and bend and extend the knee without any pain. Alert and oriented. Patient can walk on the left leg with no problems. She has steady gait. Patient states she is not taking anything for pain today. Rates pain at 9/ 10 without radiation. Penicillin. History of diabetes and hypertension high cholesterol. There is no swelling or deformity or bruising to the left knee. There is no laxity in the knee. X-ray shows no acute findings. She is given Francois wrap and sent home to take ibuprofen for pain and use ice help with pain also. Patient follow-up with her primary care if needed. Dragon Disclaimer Dragon Disclaimer This electronic medical record was generated, in whole or in part, using a voice recognition dictation system. Departure Departure Impression: Primary Impression: Knee pain Disposition: HOME, SELF-CARE Condition: STABLE Referrals: ANDRES BALDWIN MD (PCP) Patient Instructions: Knee Pain Additional Instructions: FOLLOW UP WITH YOUR PRIMARY CARE. USE IBUPROFEN AND ICE FOR PAIN. Scripts Ibuprofen (IBUPROFEN) 600 Mg Tablet 600 MG PO PRN Q6HRS PRN for INFLAMMATION, #20 TAB Prov: RAGHAV SHARP SKIN PASS OPERATOR 08/18/18 Problem Qualifiers Primary Impression: Knee pain Chronicity: acute Laterality: left Qualified Codes: M25.562 - Pain in left knee RAGHAV SHARP SKIN PASS OPERATOR Aug 18, 2018 13:42
== END 2018-08-18 14:04 | disposition home or self-care (01) ==
LOC: ER 11:43
DX: M25.562 Pain in left knee (principal); G89.11 Acute pain due to trauma; E78.00 Pure hypercholesterolemia, unspecified; E11.40 Type 2 diabetes mellitus with diabetic neuropathy, unspecified; Z88.0 Allergy status to penicillin; W00.0XXA Fall on same level due to ice and snow, initial encounter; Y93.89 Activity, other specified; Y92.89 Other specified places as the place of occurrence of the external cause; Y99.8 Other external cause status
CPT/HCPCS: 73564; 99283

== ENCOUNTER → 2018-08-18 | Outpatient (CLI) | payer OTHER ==
[~2018-08-18] MED LIST changes: +HYDR-3164 PO; -HYDR-971 PO
[2018-08-18 11:59] VITALS: BP 119/80
--- NOTE | 2018-08-18 16:51 | RAD ---
EXAM: Lumbar spine, 5 views; pelvis and right hip, 3 views. HISTORY: Pain status post fall. COMPARISON: None. FINDINGS: Lumbar spine: Frontal, lateral, bilateral oblique and coned sacral views of the lumbar spine are obtained. There is grade 1 anterolisthesis of L4 on L5, measuring 4 mm. There is degenerative endplate remodeling and Schmorl's node formation at multiple levels. There is slight disc space narrowing at L4-L5. Pelvis and right hip: A frontal view the pelvis and 2 views of the right hip are obtained. There is no fracture, dislocation or subluxation. There is a tiny bone island within the right femoral head-neck junction. IMPRESSION: 1. No acute osseous finding. 2. Mild multilevel degenerative change involving the lumbar spine. 3. Grade 1 anterolisthesis of L4 on L5. Electronically signed by: Grazyna Mckeon MD (08/18/2018 4:47 PM) [id number]
== END | disposition home or self-care (01) ==
LOC: RAD 14:37
PROVIDERS: ATTEND Family Medicine
DX: M51.36 Other intervertebral disc degeneration, lumbar region (principal); M43.16 Spondylolisthesis, lumbar region; M51.46 Schmorl's nodes, lumbar region; M25.551 Pain in right hip
CPT/HCPCS: 72110; 73502

== ENCOUNTER 2018-10-09 08:13 | Emergency (ER) | payer OTHER ==
[~2018-10-09] VITALS: Ht 154.9 cm; Wt 79.8 kg
[2018-10-09 10:15] VITALS: BP 137/75
[2018-10-09] MEDS ORDERED: HYDROcodone/APAP 5/325MG 1 TAB TABLET PO ONE (11:00)
[2018-10-09] MEDS ORDERED: CYCLOBENZAPRINE 10 MG TABLET. PO ONE (11:00)
[2018-10-09] MEDS ORDERED: HYDR-3164 PO (11:19)
[2018-10-09] MEDS ORDERED: METH4TAB2 PO (11:19)
[2018-10-09] MEDS ORDERED: CYCL10TA2 PO (11:19)
--- NOTE | 2018-10-09 11:20 | PHYS DOC ---
Past Medical History Past Medical History: Diabetes-Type II, High Cholesterol, Hypertension, Other Additional Past Medical Histor: NEUROPATHY Past Surgical History: , Other Additional Past Surgical Histo: carpal tunnel Alcohol Use: None Drug Use: None Adult General Chief Complaint Chief Complaint: MULTIPLE TRAUMA/FALL HPI HPI Patient is a 52 year old female with history of high cholesterol, diabetes type 2, hypertension, who presents today complaining of moderate right low back pain radiating to the right lower extremity that began in the beginning of September 2018 after she fell. Patient denies any loss of consciousness when she fell. Denies any loss of bowel bladder function. She states she has already been seen by her PCP, she states they did MRI of her lumbar spine and requested her to follow-up with the habilitation specialist at [facility]. She states she has an appointment on October 20, 2018. She states she's been taking ibuprofen with no relief. Patient states most of her pain is worse on ambulation. PCP Dr. Andres Jeffries. Review of Systems Review of Systems Constitutional: Denies fever or chills [] GI: Denies abdominal pain, nausea, vomiting, bloody stools or diarrhea [] : Denies dysuria or hematuria [] Musculoskeletal: Reports low back pain radiating to the right lower extremity Integument: Denies rash or skin lesions [] Neurologic: Denies headache, focal weakness or sensory changes [] Endocrine: Denies polyuria or polydipsia [] All other systems were reviewed and found to be within normal limits, except as documented in this note. Current Medications Current Medications Current Medications Medications (Trade) Dose Ordered Sig/Larissa Start Time Stop Time Status Last Admin Dose Admin Acetaminophen/ Hydrocodone Bitart (Lortab 5/325) 2 tab 1X ONCE 10/09/18 11:00 10/09/18 11:01 DC Cyclobenzaprine HCl (Flexeril) 10 mg 1X ONCE 10/09/18 11:00 10/09/18 11:01 DC Allergies Allergies Allergies Coded Allergies Type Severity Reaction Last Updated Verified No Known Medication Allergies Allergy Unknown 09/04/18 Yes Penicillins Adverse Reaction Intermediate vomiting 09/10/16 No Physical Exam Physical Exam Constitutional: Well developed, well nourished, no acute distress, non-toxic appearance. [] Abdomen: Bowel sounds normal, soft, no tenderness, no masses, no pulsatile masses. [] Skin: Warm, dry, no erythema, no rash. [] Back: Diffuse paraspinal muscle tenderness to the right lumbar spine, no midline lumbar spine tenderness, no CVA tenderness. Positive straight leg raise to the right at approximately 45 Extremities: No tenderness, no cyanosis, no clubbing, ROM intact, no edema. [] Neurologic: Alert and oriented X 3, normal motor function, normal sensory function, no focal deficits noted. [] Psychologic: Affect normal, judgement normal, mood normal. [] EKG EKG [] Radiology/Procedures Radiology/Procedures [] Course & Med Decision Making Course & Med Decision Making Pertinent Labs and Imaging studies reviewed. (See chart for details) This is a 52-year-old female patient presenting to the ED today for back pain after falling at the beginning of this month. Patient was already seen by the PCP, has had MRI done as an outpatient. Has an appointment with the habilitation specialist on October 20, 2018. She was encouraged to follow up during that appointment. She has no cauda equina syndrome symptoms. She has no new injury no need for new imaging. She was discharged back to home. Dragon Disclaimer Dragon Disclaimer This electronic medical record was generated, in whole or in part, using a voice recognition dictation system. Departure Departure Impression: Primary Impression: Low back pain Additional Impression: Fall Disposition: 01 HOME, SELF-CARE Condition: STABLE Referrals: ANDRES BALDWIN MD (PCP) Follow up next week Patient Instructions: Back Pain, Adult, [id number], Fall Prevention and Home Safety Additional Instructions: You were evaluated in the emergency room for back pain after falling. You have an appointment with your habilitation specialist in October 20, 2018. Ensure you follow -up. Try to ice and elevate the affected extremity. Scripts Cyclobenzaprine Hcl (CYCLOBENZAPRINE HCL) 10 Mg Tablet 1 TAB PO TID, #30 TAB Prov: MUTUNGADIANE BUILDING SERVICE WORKER 10/09/18 Methylprednisolone (MEDROL) 4 Mg Tab.ds.pk 1 PKG PO UD, #1 PKG Prov: MUTUNGDIANE Hardy BUILDING SERVICE WORKER 10/09/18 Hydrocodone/Apap 5-325 (NORCO 5-325 TABLET) 1 Each Tablet 1 TAB PO Q6HRS, #10 TAB Prov: MUTUNGADIANE BUILDING SERVICE WORKER 10/09/18 Problem Qualifiers Primary Impression: Low back pain Chronicity: chronic Back pain laterality: right Sciatica presence: with sciatica Sciatica laterality: sciatica of right side Qualified Codes: M54.41 - Lumbago with sciatica, right side; G89.29 - Other chronic pain Additional Impression: Fall Encounter type: initial encounter Qualified Codes: W19.XXXA - Unspecified fall, initial encounter DIANE REDMAN BUILDING SERVICE WORKER Oct 09, 2018 11:19
== END 2018-10-09 11:33 | disposition home or self-care (01) ==
LOC: ER 08:13
DX: M54.5 Low back pain (principal); M79.605 Pain in left leg; G89.11 Acute pain due to trauma; E78.00 Pure hypercholesterolemia, unspecified; I10 Essential (primary) hypertension; E11.40 Type 2 diabetes mellitus with diabetic neuropathy, unspecified; Z88.0 Allergy status to penicillin; W18.39XA Other fall on same level, initial encounter; Y93.89 Activity, other specified; Y92.89 Other specified places as the place of occurrence of the external cause; Y99.8 Other external cause status
CPT/HCPCS: 99284

== ENCOUNTER 2020-05-04 16:09 | Emergency (ER) | payer OTHER ==
[~2020-05-04] VITALS: Ht 160 cm; Wt 70.0 kg
[~2020-05-04 16:09] MED LIST changes: +METH4TAB2 PO; +SIMV10TA15 PO; -SIMV10TA3 PO
[2020-05-04 16:51] LABS: BILIRUBIN,URINE NEGATIVE (NEG); COLOR,URINE YELLOW; NITRITE,URINE NEGATIVE (NEG); PROTEIN,URINE 30 mg/dL (NEG-TRACE); UROBILINOGEN,URINE 0.2 mg/dL (0.2 mg/dL)
[2020-05-04 17:03] LABS: CLARITY,URINE CLEAR
[2020-05-04 17:04] LABS: BACTERIA,URINE FEW /HPF (0-FEW); RBC,URINE 0 /HPF (0-2); SQUAMOUS EPITHELIAL CELL,UR MOD /LPF; WBC,URINE OCC /HPF (0-4)
[2020-05-04] MEDS ORDERED: IV NORMAL SALINE 1000ML BAG 1,000 ML IV ONE (17:15)
[2020-05-04] MEDS ORDERED: ONDANSETRON PF 4 MG/2 ML VIAL. IV ONE (17:15)
[2020-05-04] MEDS ORDERED: KETOROLAC 15 MG/ML VIAL. IVP ONE (17:15)
[2020-05-04 17:22] LABS: BASO # 0.1 x10^3/uL (0.0-0.2); BASO % 1 % (0-3); EOS # 0.1 x10^3/uL (0.0-0.7); EOS % 2 % (0-3); HEMOGLOBIN 14.3 g/dL (12.0-15.5); LYMPH # 2.3 x10^3/uL (1.0-4.8); LYMPH % 25 % (24-48); MEAN CORPUSCULAR HEMOGLOBIN 26 pg (25-35); MEAN CORPUSCULAR HGB CONC 34 g/dL (31-37); MEAN CORPUSCULAR VOLUME 76 fL (79-100); MONO # 0.5 x10^3/uL (0.0-1.1); MONO % 6 % (0-9); NEUT # 5.9 x10^3/uL (1.8-7.7); NEUT % 66 % (31-73); PLATELET COUNT 299 x10^3/uL (140-400); RED CELL DISTRIBUTION WIDTH 14.5 % (11.5-14.5); WHITE BLOOD COUNT 8.9 x10^3/uL (4.0-11.0)
[2020-05-04 17:41] LABS: CALCIUM 9.9 mg/dL (8.5-10.1); CREATININE 0.7 mg/dL (0.6-1.0); GFR 87.5; POTASSIUM 3.9 mmol/L (3.5-5.1)
[2020-05-04 17:45] LABS: ALBUMIN 3.6 g/dL (3.4-5.0); ALBUMIN/GLOBULIN RATIO 0.8 (1.0-1.7); TOTAL BILIRUBIN 0.3 mg/dL (0.2-1.0); TOTAL PROTEIN 8.4 g/dL (6.4-8.2)
[2020-05-04] MEDS ORDERED: ORPHENADRINE CITRATE 60 MG/2 ML VIAL. IM ONE (19:00)
[2020-05-04 19:15] VITALS: BP 157/75
[2020-05-04] MEDS ORDERED: NAPR-695 PO (19:16)
[2020-05-04] MEDS ORDERED: CYCL10TA2 PO (19:16)
--- NOTE | 2020-05-04 19:19 | PHYS DOC ---
Past Medical History Past Medical History: Diabetes-Type II, High Cholesterol, Hypertension, Other Additional Past Medical Histor: NEUROPATHY Past Surgical History: , Other Additional Past Surgical Histo: carpal tunnel Smoking Status: Current Every Day Smoker Alcohol Use: None Drug Use: None General Adult EDM: Chief Complaint: FLANK PAIN HPI: HPI: Patient is a 54 year old female who presents to the emergency department with complaints of right flank pain for the last 2 to 3 days. She denies any injury, she denies any hematuria, shortness of breath, cough, increased urinary frequency, dysuria, fever, or diarrhea. Patient denies any known injury. She reports that it feels like it did when she previously had a kidney stone. Patient states that the pain in her right low back increases when she moves or bends. She denies any recent heavy lifting or injury. She reports that earlier today she vomited once but currently denies any nausea or vomiting. She denies any radiation of the pain to her legs, numbness, tingling, or weakness of the lower extremities. She currently rates the pain a 10 out of 10 on the pain scale, she describes it as a stabbing pain, that radiates from her back to her right upper abdomen. Patient states the pain is worse with movement, there are no alleviating factors. Review of Systems: Review of Systems: Constitutional: Denies fever or chills. [] HENT: Denies nasal congestion or sore throat. [] Respiratory: Denies cough or shortness of breath. [] Cardiovascular: Denies chest pain or edema. [] GI: See HPI : Denies dysuria, hematuria, or increased urinary frequency. [] Musculoskeletal: See HPI Integument: Denies rash. [] Neurologic: Denies headache, focal weakness or sensory changes. [] Endocrine: Denies polyuria or polydipsia. [] Psychiatric: Denies depression or anxiety. [] Heart Score: Risk Factors: Risk Factors: DM, Current or recent (<one month) smoker, HTN, HLP, family history of CAD, obesity. Risk Scores: Score 0 - 3: 2.5% MACE over next 6 weeks - Discharge Home Score 4 - 6: 20.3% MACE over next 6 weeks - Admit for Clinical Observation Score 7 - 10: 72.7% MACE over next 6 weeks - Early Invasive Strategies Current Medications: Current Medications Medications (Trade) Dose Ordered Sig/Larissa Start Time Stop Time Status Last Admin Dose Admin Ketorolac Tromethamine (Toradol 15mg Vial) 15 mg 1X ONCE 05/04/20 17:15 05/04/20 17:16 DC 05/04/20 17:31 15 MG Ondansetron HCl (Zofran) 4 mg 1X ONCE 05/04/20 17:15 05/04/20 17:16 DC 05/04/20 17:31 4 MG Sodium Chloride 1,000 ml @ 1,000 mls/hr 1X ONCE 05/04/20 17:15 05/04/20 18:14 DC 05/04/20 17:30 1,000 MLS/HR Allergies: Allergies: Allergies Coded Allergies Type Severity Reaction Last Updated Verified No Known Medication Allergies Allergy Unknown 09/04/18 Yes Penicillins Adverse Reaction Intermediate vomiting 09/10/16 No Physical Exam: PE: Constitutional: Well developed, well nourished, no acute distress, non-toxic appearance. [] HENT: Normocephalic, atraumatic, bilateral external ears normal, nose normal. [] Eyes: PERRLA, EOMI, conjunctiva normal, no discharge. [] Neck: Normal range of motion, no stridor. [] Cardiovascular:Heart rate regular rhythm Lungs & Thorax: Respirations even and unlabored, no retractions, no respiratory distress Abdomen: soft, no tenderness, no rebound tenderness, no guarding Back: Right lumbar paraspinal tenderness to palpation, negative straight leg lift of right lower extremity, no bony tenderness, no CVA tenderness Skin: Warm, dry, no erythema, no rash. [] Extremities: No cyanosis, ROM intact, no edema. [] Neurologic: Alert and oriented X 3, no focal deficits noted. [] Psychologic: Affect normal, judgement normal, mood normal. [] Current Patient Data: Labs: Laboratory Tests Test 05/04/20 16:15 05/04/20 16:30 Urine Collection Type Unknown Urine Color Yellow Urine Clarity Clear Urine pH 6.0 (<5.0-8.0) Urine Specific [place] >=1.030 (1.000-1.030) Urine Protein 30 mg/dL (NEG-TRACE) Urine Glucose (UA) >=1000 mg/dL (NEG) Urine Ketones (Stick) Trace mg/dL (NEG) Urine Blood Negative (NEG) Urine Nitrite Negative (NEG) Urine Bilirubin Negative (NEG) Urine Urobilinogen Dipstick 0.2 mg/dL (0.2 mg/dL) Urine Leukocyte Esterase Negative (NEG) Urine RBC 0 /HPF (0-2) Urine WBC Occ /HPF (0-4) Urine Squamous Epithelial Cells Mod /LPF Urine Bacteria Few /HPF (0-FEW) Urine Mucus Slight /LPF White Blood Count 8.9 x10^3/uL (4.0-11.0) Red Blood Count 5.50 x10^6/uL (3.50-5.40) H Hemoglobin 14.3 g/dL (12.0-15.5) Hematocrit 42.0 % (36.0-47.0) Mean Corpuscular Volume 76 fL (79-100) L Mean Corpuscular Hemoglobin 26 pg (25-35) Mean Corpuscular Hemoglobin Concent 34 g/dL (31-37) Red Cell Distribution Width 14.5 % (11.5-14.5) Platelet Count 299 x10^3/uL (140-400) Neutrophils (%) (Auto) 66 % (31-73) Lymphocytes (%) (Auto) 25 % (24-48) Monocytes (%) (Auto) 6 % (0-9) Eosinophils (%) (Auto) 2 % (0-3) Basophils (%) (Auto) 1 % (0-3) Neutrophils # (Auto) 5.9 x10^3/uL (1.8-7.7) Lymphocytes # (Auto) 2.3 x10^3/uL (1.0-4.8) Monocytes # (Auto) 0.5 x10^3/uL (0.0-1.1) Eosinophils # (Auto) 0.1 x10^3/uL (0.0-0.7) Basophils # (Auto) 0.1 x10^3/uL (0.0-0.2) Sodium Level 134 mmol/L (136-145) L Potassium Level 3.9 mmol/L (3.5-5.1) Chloride Level 100 mmol/L (98-107) Carbon Dioxide Level 27 mmol/L (21-32) Anion Gap 7 (6-14) Blood Urea Nitrogen 21 mg/dL (7-20) H Creatinine 0.7 mg/dL (0.6-1.0) Estimated GFR (Cockcroft-Gault) 87.5 BUN/Creatinine Ratio 30 (6-20) H Glucose Level 336 mg/dL (70-99) H Calcium Level 9.9 mg/dL (8.5-10.1) Magnesium Level 2.0 mg/dL (1.8-2.4) Total Bilirubin 0.3 mg/dL (0.2-1.0) Aspartate Amino Transferase (AST) 13 U/L (15-37) L Alanine Aminotransferase (ALT) 24 U/L (14-59) Alkaline Phosphatase 101 U/L (46-116) Total Protein 8.4 g/dL (6.4-8.2) H Albumin 3.6 g/dL (3.4-5.0) Albumin/Globulin Ratio 0.8 (1.0-1.7) L Lipase 138 U/L (73-393) Laboratory Tests 05/04/20 16:30 Laboratory Tests 05/04/20 16:30 Vital Signs: Vital Signs Date Time Temp Pulse Resp B/P (MAP) Pulse Ox O2 Delivery O2 Flow Rate FiO2 05/04/20 16:10 98.2 89 18 153/94 (113) 96 Room Air 98.2 EKG: EKG: [] Radiology/Procedures: Radiology/Procedures: [] Course & Med Decision Making: Course & Med Decision Making Pertinent Labs and Imaging studies reviewed. (See chart for details) 54-year-old female presented emergency department with complaints of right flank pain for 2 to 3 days and concerns of a kidney stone. Urinalysis was unremarkable, there was no red blood cells present in her urine. Physical exam is consistent with a left lumbar back strain. CBC is unremarkable; CMP reveals a sodium of 134, corrected sodium is 138, BUN of 21, initially the patient's blood sugar was 336 patient received a liter of normal saline in the emergency department bedside glucose following fluids was 320 Patient was given 50 mg of Toradol IV and 4 mg of Zofran she reported minimal relief of her pain after these medications but denied nausea. I discussed the results with the patient and expressed to her that I felt that her pain is more likely due to a lumbar strain as the pain is reproducible and worse with palpation and movement. I advised her that it is unlikely to be due to a kidney stone as her urinalysis was negative for blood or infection. Per patient request she was given 60 mg of IM Norflex. Will prescribe Flexeril and naproxen for home use. Recommend patient apply heat or ice to sore area as needed for pain relief. Recommend patient follow-up with her primary care doctor this week for reevaluation if symptoms persist. Return to the ER if symptoms worsen or fever develops. Patient verbalized an understanding of home care, medications, follow-up, and return to ED instructions and was in agreement with the plan of care. [] Dragon Disclaimer: Dragon Disclaimer: This electronic medical record was generated, in whole or in part, using a voice recognition dictation system. Departure Departure Impression: Primary Impression: Back pain Qualified Codes: M54.5 - Low back pain Disposition: HOME, SELF-CARE Condition: STABLE Referrals: ANDRES BALDWIN MD (PCP) Patient Instructions: Back Pain, Adult, [id number] Additional Instructions: Fill the prescription(s) and use as directed. Apply heat or ice for to sore a reas as needed for comfort. Activity as tolerated. Follow up with your primary care doctor this week if symptoms persist, return to the ER if symptoms worsen. Scripts Naproxen (NAPROXEN) 375 Mg Tablet 1 TAB PO BID for 10 Days, #20 TAB 0 Refills Prov: BAHMAN MAYNARD APRN 05/04/20 Cyclobenzaprine Hcl (CYCLOBENZAPRINE HCL) 10 Mg Tablet 1 TAB PO TID PRN for PAIN, #30 TAB 0 Refills Prov: BAHMAN MAYNARD APRN 05/04/20 Justicifation of Admission Dx: Justifications for Admission: Justification of Admission Dx: N/A BAHMAN MAYNARD APRN May 04, 2020 19:19
== END 2020-05-04 19:52 | disposition home or self-care (01) ==
LOC: ER 16:09
DX: M54.5 Low back pain (principal); R11.10 Vomiting, unspecified; R10.9 Unspecified abdominal pain; E78.00 Pure hypercholesterolemia, unspecified; I10 Essential (primary) hypertension; E11.40 Type 2 diabetes mellitus with diabetic neuropathy, unspecified; F17.200 Nicotine dependence, unspecified, uncomplicated; Z98.890 Other specified postprocedural states
CPT/HCPCS: 36415; 80053; 81001; 82962; 83690; 83735; 85025; 96361; 96372; 96374; 96375; 99285; J1885; J2360; J2405; J7030

== ENCOUNTER 2021-05-18 14:43 | Emergency (ER) | payer OTHER ==
[~2021-05-18] VITALS: Ht 152.4 cm; Wt 79.5 kg
[~2021-05-18 14:43] MED LIST changes: -CLIN150C14 PO; +CLIN150C16 PO; -CLIN300C8 PO; +CLIN300C9 PO; -LISI2.5T PO; +LISI2.5T12 PO
--- NOTE | 2021-05-18 17:18 | RAD ---
EXAMINATION: Chest radiograph. VIEWS: Single view COMPARISON: None INDICATION:55 years, Female, cough. FINDINGS: Normal cardiomediastinal silhouette. Subtle peripheral opacities in the right mid and lower lungs No pleural effusion or pneumothorax. No acute osseous process. IMPRESSION: Subtle peripheral opacities in the right mid and lower lungs, may be artifactual or multifocal pneumo edison. Electronically signed by: Becca Gold MD (05/18/2021 5:16 PM) [facility]
[2021-05-18] MEDS ORDERED: ALBU2.5V8 IH (18:01)
[2021-05-18] MEDS ORDERED: BENZ100C PO (18:01)
[2021-05-18] MEDS ORDERED: DOXY100T PO (18:01)
--- NOTE | 2021-05-18 18:01 | PHYS DOC ---
Past Medical History Past Medical History: Diabetes-Type II, High Cholesterol, Hypertension, Other Additional Past Medical Histor: NEUROPATHY Past Surgical History: , Other Additional Past Surgical Histo: carpal tunnel Smoking Status: Current Every Day Smoker Alcohol Use: None Drug Use: None General Adult EDM: Chief Complaint: COUGH HPI: HPI: Patient is a 55 year old female with history of diabetes type 2, hypertension, high cholesterol, who presents to the ED today to be evaluated for cough, nasal congestion, fatigue, symptoms began 2 to 3 days ago. Patient reports being unvaccinated from COVID-19. Review of Systems: Review of Systems: Constitutional: Reports fatigue. Denies fever or chills. [] Eyes: Denies change in visual acuity. [] HENT: Reports nasal congestion, denies sore throat. [] Respiratory: Reports cough, denies shortness of breath. [] Cardiovascular: Denies chest pain or edema. [] GI: Denies abdominal pain, nausea, vomiting, bloody stools or diarrhea. [] : Denies dysuria. [] Musculoskeletal: Denies back pain or joint pain. [] Integument: Denies rash. [] Neurologic: Denies headache, focal weakness or sensory changes. [] Psychiatric: Denies depression or anxiety. [] Heart Score: C/O Chest Pain: N/A Risk Factors: Risk Factors: DM, Current or recent (<one month) smoker, HTN, HLP, family histo ry of CAD, obesity. Risk Scores: Score 0 - 3: 2.5% MACE over next 6 weeks - Discharge Home Score 4 - 6: 20.3% MACE over next 6 weeks - Admit for Clinical Observation Score 7 - 10: 72.7% MACE over next 6 weeks - Early Invasive Strategies Allergies: Allergies: Allergies Coded Allergies Type Severity Reaction Last Updated Verified Penicillins Adverse Reaction Intermediate vomiting 05/18/21 No Physical Exam: PE: Constitutional: Well developed, well nourished, no acute distress, non-toxic appearance. [] HENT: Normocephalic, atraumatic, bilateral external ears normal, oropharynx moist, no oral exudates, nose normal. [] Eyes: PERRLA, EOMI, conjunctiva normal, no discharge. [] Neck: Normal range of motion, no tenderness, supple, no stridor. [] Cardiovascular:Heart rate regular rhythm, no murmur [] Lungs & Thorax: Bilateral breath sounds clear to auscultation [] Abdomen: Bowel sounds normal, soft, no tenderness, no masses, no pulsatile masses. [] Skin: Warm, dry, no erythema, no rash. [] Back: No tenderness, no CVA tenderness. [] Extremities: No tenderness, no cyanosis, no clubbing, ROM intact, no edema. [] Neurologic: Alert and oriented X 3, normal motor function, normal sensory function, no focal deficits noted. [] Psychologic: Affect normal, judgement normal, mood normal. [] Current Patient Data: Labs: Laboratory Tests Test 05/18/21 17:18 SARS-CoV-2 Antigen (Rapid) Positive (NEGATIVE) *A Vital Signs: Vital Signs Date Time Temp Pulse Resp B/P (MAP) Pulse Ox O2 Delivery O2 Flow Rate FiO2 05/18/21 16:44 99.3 96 28 138/77 (102) 96 Room Air 99.3 EKG: EKG: [] Radiology/Procedures: Radiology/Procedures: []PROCEDURE: CHEST AP ONLY EXAMINATION: Chest radiograph. VIEWS: Single view COMPARISON: None INDICATION:55 years, Female, cough. FINDINGS: Normal cardiomediastinal silhouette. Subtle peripheral opacities in the right mid and lower lungs No pleural effusion or pneumothorax. No acute osseous process. IMPRESSION: Subtle peripheral opacities in the right mid and lower lungs, may be artifactual or multifocal pneumonia. Electronically signed by: Kira Gold MD (05/18/2021 5:16 PM) [facility] DICTATED and SIGNED BY: KIRA GOLD MD DATE: 05/18/21 [id number] 0 Course & Med Decision Making: Course & Med Decision Making Pertinent Labs and Imaging studies reviewed. (See chart for details) This is a 55-year-old female patient presented to the ED today with cough, nasal congestion, fatigue, symptoms for 2 to 3 days. Rapid Covid test is positive. Chest x-ray noted for possible multifocal pneumonia. Temperature 99.3, O2 sats 96% on room air. Patient was discharged on doxycycline. Follow-up with PCP in 1 to 2 weeks. Importance of quarantine emphasized. Titi Disclaimer: Titi Disclaimer: This electronic medical record was generated, in whole or in part, using a voice recognition dictation system. Departure Departure Impression: Primary Impression: Lab test positive for detection of COVID-19 virus Additional Impression: Bilateral pneumonia Qualified Codes: J18.9 - Pneumonia, unspecified organism Disposition: HOME / SELF CARE / HOMELESS Condition: STABLE Referrals: ANDRES BALDWIN MD (PCP) follow up with your doctor in 1-2 weeks Patient Instructions: Pneumonia, Adult, [id number] Additional Instructions: You are positive for COVID-19 as well as Covid pneumonia. We put you on antibiotics, ensure you complete them. Please quarantine yourself for 14 days. Scripts Albuterol Sulfate (Proair Hfa) 8.5 Gm Hfa.aer.ad 2 PUFF IH PRN Q4-6HRS PRN for wheezing for 21 Days, #1 INHALER 0 Refills Prov: DIANE REDMAN APRN 05/18/21 Benzonatate (TESSALON PERLE) 100 Mg Capsule 1 CAP PO TID, #30 CAP Prov: DIANE REDMAN APRN 05/18/21 Doxycycline Hyclate (DOXYCYCLINE HYCLATE) 100 Mg Tablet 1 TAB PO BID, #14 TAB Prov: DIANE REDMAN APRN 05/18/21 DIANE REDMAN APRN May 18, 2021 18:01
[2021-05-18 18:05] VITALS: BP 140/82
== END 2021-05-18 18:05 | disposition home or self-care (01) ==
LOC: ER 14:43
DX: U07.1 COVID-19 (principal); J18.9 Pneumonia, unspecified organism; E78.00 Pure hypercholesterolemia, unspecified; I10 Essential (primary) hypertension; E11.40 Type 2 diabetes mellitus with diabetic neuropathy, unspecified; F17.200 Nicotine dependence, unspecified, uncomplicated; Z88.0 Allergy status to penicillin
CPT/HCPCS: 71045; 87426; 99284